=== PATIENT | male | born 1990 | race Caucasian/White ===

== ENCOUNTER 2017-02-18 10:36 | Inpatient (IN) | payer OTHER ==
[~2017-02-18] VITALS: Ht 177.8 cm; Wt 84.5 kg
[2017-02-18 10:30] VITALS: O2SAT 100
[2017-02-18] MEDS ORDERED: ceFAZolin 2 GM PREMIX 50 ML ONE (10:41)
[2017-02-18] MEDS ORDERED: DIPHTH/TETANUS/ACEL PERTUSSIS (BOOSTER) 0.5 ML VIAL/PFS IM ONE (10:41)
[2017-02-18 11:02] LABS: AUTOMATED NEUTROPHIL # 7.4 TH/MM3 (1.8-7.7); BASOPHIL % 0.3 % (0.0-2.0); EOSINOPHIL # 0.1 TH/MM3 (0-0.4); EOSINOPHIL % 1.1 % (0.0-4.0); HEMATOCRIT 46.5 % (39.0-51.0); HEMOGLOBIN 15.6 GM/DL (13.0-17.0); LYMPH % 25.3 % (9.0-44.0); LYMPHOCYTE # 2.8 TH/MM3 (1.0-4.8); MEAN CELL VOLUME 91.2 FL (80.0-100.0); MEAN CORPUSCULAR HEMOGLOBIN 30.7 PG (27.0-34.0); MEAN CORPUSCULAR HGB CONC 33.6 % (32.0-36.0); MEAN PLATELET VOLUME 8.2 FL (7.0-11.0); MONO % 5.6 % (0.0-8.0); MONOCYTE # 0.6 TH/MM3 (0-0.9); NEUT % 67.7 % (16.0-70.0); PLATELET COUNT 235 TH/MM3 (150-450); RED CELL DISTRIBUTION WIDTH 13.2 % (11.6-17.2); WHITE BLOOD COUNT 10.9 TH/MM3 (4.0-11.0)
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
[2017-02-18] MEDS ORDERED: IOHEXOL 350 MG/ML 10 ML VIAL (for RAD DIAG) IVCONTRAST ONE (11:07)
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
[2017-02-18 11:12] LABS: INTERNATIONAL NORMALIZED RATIO 1.1 RATIO; PROTHROMBIN TIME - PATIENT 10.7 SEC (9.8-11.6)
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
[2017-02-18] MEDS ORDERED: LIDOCAINE 1%/EPINEPHrine 1:100,000 SOLN 20 ML VIAL INFIL ONE (12:15)
[2017-02-18 12:19] VITALS: BP 143/73; PULSE 65; RESP 23; O2SAT 100
[2017-02-18] MEDS ORDERED: ONDANSETRON HCL 4 MG/2 ML VIAL IV PUSH PRN (12:45)
[2017-02-18] MEDS ORDERED: MAGNESIUM HYDROXIDE SUSP 30 ML CUP PO PRN (12:45)
[2017-02-18] MEDS ORDERED: MISCELLANEOUS NURSING INFORMATION XX SCH (12:45)
[2017-02-18] MEDS ORDERED: CHLORHEXIDINE GLUCONATE 2 % 1 PACK (2 CLOTHS) TOP PRN (12:45)
[2017-02-18] MEDS: LACTATED RINGER'S 1000 ML INJ 1,000 ML IV SCH ×2 (13:00→21:05)
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
[2017-02-18 13:23] VITALS: BP 120/61; PULSE 65; RESP 19; O2SAT 100
[2017-02-18] MEDS: MORPHINE SULFATE 2 MG/ML INJ IV PUSH PRN ×3 (14:11→21:05)
[2017-02-18] MEDS: ACETAMINOPHEN 1000 MG/100 ML 100 ML IV SCH ×2 (14:21→21:00)
--- NOTE | 2017-02-18 14:23 | PD ---
Physical Exam Date Seen by Provider: Feb 18, 2017 Time Seen by Provider: 14:21 Narrative I was asked by Dr. Castro to repair lacerations to the patient's right knee and face. Please see her documentation for full history and physical. Data Data Last Documented VS Vital Signs Date Time Temp Pulse Resp B/P (MAP) Pulse Ox O2 Delivery O2 Flow Rate FiO2 02/18/17 12:19 65 23 143/73 (96) 100 Room Air 02/18/17 10:30 21 Orders Orders Cefazolin 2 Gm Premix (Ancef 2 Gm Premix (02/18/17 10:41) Cdra-Ysx-Jwebhv (Booster) Inj (Boostrix (02/18/17 10:41) Fentanyl Inj (Fentanyl Inj) (02/18/17 10:45) I-Stat Profile (02/18/17 10:40) I-Stat Creatinine (02/18/17 10:40) Complete Blood Count With Diff (02/18/17 10:40) Prothrombin Time / Inr (Pt) (02/18/17 10:40) Act Partial Throm Time (Ptt) (02/18/17 10:40) Type And Screen (02/18/17 10:40) Chest, Single Ap (02/18/17 10:40) Pelvis, Ap Only (Routine) (02/18/17 10:40) Ct Brain W/O Iv Contrast(Rout) (02/18/17 10:40) Ct Cerv Spine W/O Contrast (02/18/17 10:40) Ct Abd/Pel W Iv Contrast(Rout) (02/18/17 10:40) Ct Facial Bones W/O Iv Cont (02/18/17 10:40) Iv Access Insert/Monitor (02/18/17 10:40) Ecg Monitoring (02/18/17 10:40) Oximetry (02/18/17 10:40) Oxygen Administration (02/18/17 10:40) Tibia/Fibula (Ap/Lat) (02/18/17 ) Knee, Ltd (1 Or 2vws) (02/18/17 ) Ankle, Limited (Ap&Lat) (02/18/17 ) Shoulder, One View (02/18/17 ) Ct Thorax/ Chest W Iv Contrast (02/18/17 ) Iohexol 350 Inj (Omnipaque 350 Inj) (02/18/17 11:07) Fentanyl Inj (Fentanyl Inj) (02/18/17 11:30) Lidocai-Epi 1%-1:100,000 Inj (Xylocaine- (02/18/17 12:15) Ice Cuff (02/18/17 ) Splint Post Long Leg Ad Alum (02/18/17 ) Admit Order (Ed Use Only) (02/18/17 12:18) Labs Laboratory Tests Test 02/18/17 10:40 White Blood Count 10.9 TH/MM3 Red Blood Count 5.10 MIL/MM3 Hemoglobin 15.6 GM/DL Bedside Hemoglobin 15.6 G/DL Hematocrit 46.5 % Bedside Hematocrit 46.0 % Mean Corpuscular Volume 91.2 FL Mean Corpuscular Hemoglobin 30.7 PG Mean Corpuscular Hemoglobin Concent 33.6 % Red Cell Distribution Width 13.2 % Platelet Count 235 TH/MM3 Mean Platelet Volume 8.2 FL Neutrophils (%) (Auto) 67.7 % Lymphocytes (%) (Auto) 25.3 % Monocytes (%) (Auto) 5.6 % Eosinophils (%) (Auto) 1.1 % Basophils (%) (Auto) 0.3 % Neutrophils # (Auto) 7.4 TH/MM3 Lymphocytes # (Auto) 2.8 TH/MM3 Monocytes # (Auto) 0.6 TH/MM3 Eosinophils # (Auto) 0.1 TH/MM3 Basophils # (Auto) 0.0 TH/MM3 CBC Comment DIFF FINAL Differential Comment Prothrombin Time 10.7 SEC Prothromb Time International Ratio 1.1 RATIO Activated Partial Thromboplast Time 23.1 SEC Bedside Sodium 139 MMOL/L Bedside Potassium 4.1 MMOL/L Bedside Chloride 101 MMOL/L Bedside Blood Urea Nitrogen 16 MG/DL Bedside Creatinine 1.0 MG/DL Bedside Glucose 122 MG/DL MDM Supervised Visit with LYRIC: No Narrative Course I was asked by Dr. Castro to repair lacerations of the patient's right knee and face. Laceration was easily repaired to the right knee without difficulty. However, facial lacerations were complicated extending up into the right nostril. I contacted the plastic surgeon, Dr. Rogel, who came to the emergency department and repaired lacerations to the patient's face. Procedures Procedure Narrative LACERATION LOCATION: Right knee LENGTH: 3 cm NUMBER OF STITCHES/JUAN F: 1 vertical mattress suture, 2 simple interrupted sutures REPAIR: The area of the laceration was prepped with Betadine and sterilely draped. The laceration was infiltrated with 1% lidocaine with epinephrine. The wound was copiously irrigated and explored without evidence of foreign body, tendon injury or neurovascular injury. The wound was closed using 3-0 Prolene. This was a single layer repair. A sterile dressing was applied. The patient was advised to keep the dressing clean and dry. Patient tolerated the procedure well. LACERATION LOCATION: Upper inner lip LENGTH: 4 cm NUMBER OF STITCHES/JUAN F: 5 simple interrupted sutures REPAIR: The area of the laceration was prepped with Betadine and sterilely draped. The laceration was infiltrated with 1% lidocaine with epinephrine. The wound was copiously irrigated and explored without evidence of foreign body, tendon injury or neurovascular injury. The wound was closed using 5-0 Vicryl. This was a single layer repair. A sterile dressing was applied. The patient was advised to keep the dressing clean and dry. Patient tolerated the procedure well. Scripts No Active Prescriptions or Reported [facility] Eloise Quintanilla Feb 18, 2017 14:23
[2017-02-18 15:38] VITALS: BP 145/61
[2017-02-18 16:00] VITALS: BP 142/88; PULSE 62; RESP 18; TEMP 99.2; O2SAT 99
[2017-02-18] MEDS ORDERED: GENTAMICIN SULFATE 80 MG/2 ML VIAL ONE (16:21)
--- NOTE | 2017-02-18 16:29 | RADRPT ---
EXAM DATE/TIME: 02/18/2017 11:04 [place] COMPARISON: No previous studies available for comparison. INDICATIONS : Low back pain for one day. RADIATION DOSE: ; Reconstructed from previous dataset, no dose MEDICAL HISTORY : None SURGICAL HISTORY : None. ENCOUNTER: Initial ACUITY: 1 day PAIN SCALE: 8/10 LOCATION: Bilateral lower back. TECHNIQUE: Volumetric scanning of the lumbar spine was performed. Multiplanar reconstructions in the sagittal, coronal and oblique axial planes were performed. Using automated exposure control and adjustment of the mA and/or kV according to patient size, radiation dose was kept as low as reasonably achievable t o obtain optimal diagnostic quality images. DICOM format image data is available electronically for review and comparison. FINDINGS: There is a mild compression fracture through the superior endplate of anteriorly. There is no retropu lsion. There is no canal stenosis. There is a remote fracture or accessory ossicle of the left L3 tra nsverse process. No other fractures are identified. CONCLUSION: 1. Mild superior endplate compression fracture of L4 anteriorly. No subluxation. No retropulsion. Fahad Roger MD on February 18, 2017 at 16:26 Board Certified Radiologist. This report was verified electronically.
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
[2017-02-18] MEDS ORDERED: MAGN30S PO (19:58)
[2017-02-18] MEDS ORDERED: DOCU1CAP39 PO (19:58)
[2017-02-18 20:00] VITALS: BP 151/92; PULSE 56; RESP 18; TEMP 96.6; O2SAT 100
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
[2017-02-18] MEDS ORDERED: LACTATED RINGER'S 1000 ML IV PRN (20:30)
[2017-02-18] MEDS ORDERED: POVIDONE IODINE 5% (ANTISEPSIS KIT) 4 APPLICATIONS EACH NARE PRN (20:30)
[2017-02-18] MEDS ORDERED: CHLORHEXIDINE GLUCONATE 2 % 1 PACK (2 CLOTHS) TOPICAL PRN (20:30)
[2017-02-18] MEDS ORDERED: SODIUM CHLORID 0.9% 500 ML IV PRN (20:30)
[2017-02-18] MEDS: DOCUSATE SODIUM 100 MG CAP PO SCH (21:00)
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
[2017-02-19] VITALS: BP 153/84; PULSE 81; RESP 20; TEMP 98.6; O2SAT 100
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
[2017-02-19] MEDS: MORPHINE SULFATE 2 MG/ML INJ IV PUSH PRN ×4 (01:05→11:37)
[2017-02-19] MEDS: ACETAMINOPHEN 1000 MG/100 ML 100 ML IV SCH ×2 (01:05→06:14)
[2017-02-19 04:00] VITALS: BP 145/84; PULSE 66; RESP 20; TEMP 99; O2SAT 98
[2017-02-19] MEDS ORDERED: CHLORHEXIDINE GLUCONATE 2 % 1 PACK (2 CLOTHS) TOP SCH (04:00)
[2017-02-19 04:17] LABS: AUTOMATED NEUTROPHIL # 6.7 TH/MM3 (1.8-7.7); BASOPHIL % 0.2 % (0.0-2.0); EOSINOPHIL % 0.3 % (0.0-4.0); HEMATOCRIT 41.8 % (39.0-51.0); HEMOGLOBIN 14.3 GM/DL (13.0-17.0); LYMPH % 14.2 % (9.0-44.0); LYMPHOCYTE # 1.2 TH/MM3 (1.0-4.8); MEAN CELL VOLUME 90.4 FL (80.0-100.0); MEAN CORPUSCULAR HEMOGLOBIN 30.8 PG (27.0-34.0); MEAN CORPUSCULAR HGB CONC 34.1 % (32.0-36.0); MONO % 7.5 % (0.0-8.0); MONOCYTE # 0.6 TH/MM3 (0-0.9); NEUT % 77.8 % (16.0-70.0); PLATELET COUNT 169 TH/MM3 (150-450); RED BLOOD COUNT 4.63 MIL/MM3 (4.50-5.90); RED CELL DISTRIBUTION WIDTH 13.3 % (11.6-17.2); WHITE BLOOD COUNT 8.6 TH/MM3 (4.0-11.0)
[2017-02-19 04:43] LABS: BICARBONATE 26.1 MEQ/L (21.0-32.0); CALCIUM 8.8 MG/DL (8.5-10.1); CREATININE 0.83 MG/DL (0.60-1.30)
[2017-02-19 08:00] VITALS: BP 149/85; PULSE 94; RESP 18; TEMP 97.8; O2SAT 97
[2017-02-19] MEDS: DOCUSATE SODIUM 100 MG CAP PO SCH (08:05)
[2017-02-19] MEDS: LACTATED RINGER'S 1000 ML INJ 1,000 ML IV SCH ×2 (08:06→20:31)
[2017-02-19] MEDS ORDERED: GENTAMICIN SULFATE 80 MG/2 ML VIAL ONE (09:55)
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
[2017-02-19 12:00] VITALS: BP 143/89; PULSE 78; RESP 18; TEMP 97.8; O2SAT 95
[2017-02-19] MEDS ORDERED: PROPOFOL 200 MG/20 ML AMP IV ONE (12:00)
[2017-02-19] MEDS ORDERED: GLYCOPYRROLATE 1 MG/5 ML SYRINGE IV PUSH ONE (12:00)
[2017-02-19] MEDS ORDERED: PHENYLEPH/NS 1000 MCG/10 ML SYR IV ONE (12:00)
[2017-02-19] MEDS ORDERED: STERILE WATER FOR INJECTION 20 ML VIAL IV ONE (12:00)
[2017-02-19] MEDS ORDERED: ceFAZolin INJ 1,000 MG VIAL IV ONE (12:00)
[2017-02-19] MEDS ORDERED: NEOSTIGMINE 5 MG/5 ML SYRINGE IV PUSH ONE (12:00)
[2017-02-19] MEDS ORDERED: LIDOCAINE HCL 1% PF 5 ML SYRINGE OTHER ONE (12:00)
[2017-02-19] MEDS ORDERED: DEXAMETHASONE SOD PHOS 4 MG/ML VIAL IV ONE (12:00)
[2017-02-19] MEDS ORDERED: ONDANSETRON HCL 4 MG/2 ML VIAL IV ONE (12:00)
[2017-02-19] MEDS ORDERED: LACTATED RINGER'S 1000 ML INJ 1,000 ML IV ONE (12:00)
[2017-02-19] MEDS ORDERED: ROCURONIUM INJ 50 MG/5 ML SYRINGE IV PUSH ONE (12:00)
[2017-02-19] MEDS ORDERED: ESMOLOL HCL 100 MG/10 ML VIAL IV ONE (12:00)
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
--- NOTE | 2017-02-19 15:08 | PD.ORT.PN ---
Subjective Subjective Remarks no CP/SOB Objective Vitals Vital Signs Date Time Temp Pulse Resp B/P (MAP) Pulse Ox O2 Delivery O2 Flow Rate FiO2 02/19/17 08:06 17 02/19/17 08:00 97.8 94 18 149/85 (106) 97 02/19/17 06:44 16 02/19/17 04:00 99.0 66 20 145/84 (104) 98 02/19/17 00:00 98.6 81 20 153/84 (107) 100 02/18/17 20:00 96.6 56 18 151/92 (111) 100 02/18/17 16:00 99.2 62 18 142/88 (106) 99 02/18/17 15:38 68 21 145/61 (89) 100 I/O 02/18/17 02/18/17 02/18/17 02/19/17 02/19/17 02/19/17 07:00 15:00 23:00 07:00 15:00 23:00 Intake Total 220 ml 1092 ml Output Total 750 ml 550 ml Balance -530 ml 542 ml Intake Oral 120 ml 200 ml IV Total 100 ml 892 ml Output Urine Total 750 ml 550 ml # Bowel Movements 0 0 Result Diagram: 02/19/1740202/19/17402 Objective Remarks LLE: splint in place, grossly nvi. foot and ankle swelling, TTP ankle and patella. good cap refill, soft compartments. Assessment & Plan Assessment and Plan 1- left patella fx 2- left pilon fx stable NWB xrays left knee CT left ankle ice, elevate lovenox OR when soft tissue amenable to ORIF, likely with Dr Oropeza next week Frank Watkins Jr., MD Feb 19, 2017 15:08
[2017-02-19] MEDS ORDERED: ceFAZolin 2 GM PREMIX 50 ML IV ONE (16:33)
[2017-02-19] MEDS ORDERED: MEPERIDINE HCL 50 MG/ML VIAL ONE (17:25)
--- NOTE | 2017-02-19 17:26 | PD.ORT.PN ---
Subjective Subjective Remarks Postoperative day 0 for external fixation of left ankle Objective Vitals Vital Signs Date Time Temp Pulse Resp B/P (MAP) Pulse Ox O2 Delivery O2 Flow Rate FiO2 02/19/17 15:30 82 18 138/98 (111) 99 02/19/17 08:06 17 02/19/17 08:00 97.8 94 18 149/85 (106) 97 02/19/17 06:44 16 02/19/17 04:00 99.0 66 20 145/84 (104) 98 02/19/17 00:00 98.6 81 20 153/84 (107) 100 02/18/17 20:00 96.6 56 18 151/92 (111) 100 I/O 02/18/17 02/18/17 02/18/17 02/19/17 02/19/17 02/19/17 07:00 15:00 23:00 07:00 15:00 23:00 Intake Total 220 ml 1092 ml Output Total 750 ml 550 ml Balance -530 ml 542 ml Intake Oral 120 ml 200 ml IV Total 100 ml 892 ml Output Urine Total 750 ml 550 ml # Bowel Movements 0 0 Result Diagram: 02/19/17 0403 02/19/17 0403 Objective Remarks LLE: splint in place, grossly nvi. foot and ankle swelling, TTP ankle and patella. good cap refill, soft compartments. Assessment & Plan Ortho Post Op Day #: 0 Problem List: Assessment and Plan Left ankle pilon fracture with fibula fracture. Left patella fracture, comminuted. SURGERY: Left ankle external fixator. PLAN: This patient will need delayed open treatment of fixation left pilon ankle fracture and left patella fracture. She Lovenox for chemical DVT prophylaxis, 40 mg daily. Ice and elevation of the left ankle. No dressing changes recommended. Splint for left knee. Dr. Green will be in town starting Wednesday. Coordination of care will be necessary with Dr. Green for transfer of orthopedics responsibility of left ankle and left knee when stable orthopedically Ibrahima Aguilar MD Feb 19, 2017 17:26
[2017-02-19] MEDS ORDERED: DO NOT ADM ANY ANTICOAGULANT DRUGS PRN (17:30)
--- NOTE | 2017-02-19 17:31 | RADRPT ---
EXAM DATE/TIME: 02/19/2017 16:31 [facility] COMPARISON: ANKLE LEFT LIMITED (AP&LAT), February 18, 2017, 10:37. INDICATIONS : External fixation of left ankle fracture MEDICAL HISTORY : None. SURGICAL HISTORY : None. ENCOUNTER: Initial ACUITY: 1 day PAIN SCORE: Non-responsive. LOCATION: Left ankle FINDINGS: 4 views of the left ankle demonstrate interval placement of external fixation screws. Hardware appear s intact and well-positioned. Redemonstration of severely comminuted distal tibial fracture. No new f ractures are identified. CONCLUSION: 1. Status post left ankle external fixation, as above. Scott Erazo MD on February 19, 2017 at 17:28 Board Certified Radiologist. This report was verified electronically.
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
--- NOTE | 2017-02-19 17:40 | RADRPT ---
EXAM DATE/TIME: 02/19/2017 16:31 [facility] COMPARISON: No previous studies available for comparison. INDICATIONS : Evaluation of left patella fracture MEDICAL HISTORY : None. SURGICAL HISTORY : None. ENCOUNTER: Initial ACUITY: 1 day PAIN SCORE: Non-responsive. LOCATION: Left patella FINDINGS: AP and crosstable lateral views of the left knee. There is a comminuted fracture of the patella remai kell osseous structures appear intact. CONCLUSION: 1. Comminuted left patellar fracture. Scott Erazo MD on February 19, 2017 at 17:37 Board Certified Radiologist. This report was verified electronically.
[2017-02-19] MEDS ORDERED: ONDANSETRON HCL 4 MG/2 ML VIAL IVP PRN (17:45)
[2017-02-19] MEDS ORDERED: MAGNESIUM HYDROXIDE SUSP 30 ML CUP PO PRN (17:45)
[2017-02-19] MEDS ORDERED: NALOXONE HCL 0.4 MG/ML AMP IV PUSH PRN (17:45)
[2017-02-19] MEDS ORDERED: diphenhydrAMINE HCL 25 MG CAP PO PRN (17:45)
[2017-02-19] MEDS ORDERED: Post-op Orders (for Pharmacy) XX ONE (17:45)
[2017-02-19] MEDS ORDERED: ACETAMINOPHEN/HYDROcodone 325 MG/5 MG TAB PO PRN (17:45)
[2017-02-19] MEDS ORDERED: *morphine SULFATE 8 MG/ML PERIprocedure ONLY ONE (17:55)
[2017-02-19 20:00] VITALS: BP 147/97; PULSE 99; RESP 18; TEMP 96.8; O2SAT 97
[2017-02-19] MEDS: MORPHINE SULFATE 30 MG/30 ML PCA IV SCH (20:00)
[2017-02-19] MEDS: DOCUSATE SODIUM 50 MG/SENNA 8.6 MG TAB PO SCH (20:31)
[2017-02-19] MEDS: CALCIUM/VITAMIN D 250 MG/125 U TAB PO SCH (20:31)
[2017-02-19 20:45] VITALS: O2SAT 97
[2017-02-19] MEDS: PCA - TOTAL MG MORPHINE DELIVERED PER SHIFT SCH (22:00)
[2017-02-20] VITALS: BP 142/92; PULSE 94; RESP 18; TEMP 96.2; O2SAT 96
[2017-02-20] MEDS: MORPHINE SULFATE 30 MG/30 ML PCA IV SCH ×3 (03:02→16:45)
[2017-02-20 03:59] VITALS: BP 149/76; PULSE 96; RESP 18; TEMP 98.8; O2SAT 98
[2017-02-20] MEDS: LACTATED RINGER'S 1000 ML INJ 1,000 ML IV SCH ×2 (05:34→09:56)
[2017-02-20] MEDS: ENOXAPARIN SODIUM 40 MG/0.4 ML SYRINGE SQ SCH (05:34)
[2017-02-20] MEDS: PCA - TOTAL MG MORPHINE DELIVERED PER SHIFT SCH ×3 (05:36→22:00)
[2017-02-20 07:48] VITALS: BP 152/83; PULSE 110; RESP 19; TEMP 97.8; O2SAT 97
[2017-02-20] MEDS: MAGNESIUM HYDROXIDE SUSP 30 ML CUP PO SCH ×2 (08:04→20:00)
[2017-02-20] MEDS: MULTIVITAMINS/MINERALS THERAPEUTIC TAB PO SCH (08:05)
[2017-02-20] MEDS: DOCUSATE SODIUM 50 MG/SENNA 8.6 MG TAB PO SCH ×2 (08:05→21:00)
[2017-02-20] MEDS: CALCIUM/VITAMIN D 250 MG/125 U TAB PO SCH ×3 (08:05→15:02)
--- NOTE | 2017-02-20 08:47 | PD.ORT.PN ---
Subjective Post Op Day #: 1 Subjective Remarks pain tolerable Objective Vitals Vital Signs Date Time Temp Pulse Resp B/P (MAP) Pulse Ox O2 Delivery O2 Flow Rate FiO2 02/20/17 07:48 97.8 110 19 152/83 (106) 97 02/20/17 05:36 18 02/20/17 03:59 98.8 96 18 149/76 (100) 98 02/20/17 03:10 17 02/20/17 03:02 18 02/20/17 00:00 96.2 94 18 142/92 (109) 96 02/19/17 22:00 18 02/19/17 20:45 97 Nasal Cannula 2.00 02/19/17 20:00 96.8 99 18 147/97 (114) 97 02/19/17 20:00 18 02/19/17 18:15 98.5 86 18 158/87 (110) 98 Nasal Cannula 2 02/19/17 18:00 86 18 160/90 (113) 98 Nasal Cannula 2 02/19/17 17:45 86 18 159/89 (112) 98 Nasal Cannula 2 02/19/17 17:30 81 18 160/89 (112) 98 Nasal Cannula 2 02/19/17 17:28 98.5 84 18 145/88 (107) 98 Nasal Cannula 2 02/19/17 15:30 82 18 138/98 (111) 99 02/19/17 12:00 97.8 78 18 143/89 (107) 95 I/O 02/19/17 02/19/17 02/19/17 02/20/17 02/20/17 02/20/17 07:00 15:00 23:00 07:00 15:00 23:00 Intake Total 1092 ml 1680 ml 1707 ml Output Total 550 ml 900 ml 610 ml 1250 ml Balance 542 ml -900 ml 1070 ml 457 ml Intake Oral 200 ml 480 ml 720 ml IV Total 892 ml 987 ml Other 1200 ml Output Urine Total 550 ml 900 ml 600 ml 1250 ml Estimated Blood Loss 10 ml # Bowel Movements 0 0 0 Result Diagram: 02/19/1740202/19/17402 Objective Remarks in bed, nad ice on face LLE - ex-fix intact, swelling, no erythema, nvi, sensation intact, cap refill, calf non-tender Assessment & Plan Ortho Post Op Day #: 1 Problem List: Assessment and Plan Left ankle pilon fracture with fibula fracture. Left patella fracture, comminuted. SURGERY: Left ankle external fixator. POD#1 PLAN: This patient will need delayed open treatment of fixation left pilon ankle fracture and left patella fracture. Lovenox for chemical DVT prophylaxis, 40 mg daily. Ice and elevation of the left ankle. No dressing changes recommended. Splint for left knee. Dr. Green will be in town starting Wednesday. Coordination of care will be necessary with Dr. Green for transfer of orthopedics responsibility of left ankle and left knee when stable orthopedically Fritz Peterson Feb 20, 2017 08:47
[2017-02-20 11:00] VITALS: BP 150/89; PULSE 93; RESP 18; TEMP 97; O2SAT 94
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
[2017-02-20 15:03] VITALS: BP 158/99; PULSE 101; RESP 19; TEMP 97.7; O2SAT 95
[2017-02-20] MEDS: ACETAMINOPHEN/HYDROcodone 325 MG/5 MG TAB PO PRN (15:06)
[2017-02-20] MEDS ORDERED: PADIMATE (CHAPSTICK) 4.5 GM TUBE TOPICAL PRN (17:15)
[2017-02-20 19:14] VITALS: BP 149/80; PULSE 93; RESP 18; TEMP 98.7; O2SAT 96
[2017-02-21] VITALS (7 sets, daily range): BP systolic 153–163; BP diastolic 69–92; PULSE 81–103; RESP 18–20; TEMP 96.8–99.6; O2SAT 96–97
[2017-02-21] MEDS: ENOXAPARIN SODIUM 40 MG/0.4 ML SYRINGE SQ SCH (05:10)
[2017-02-21] MEDS: MORPHINE SULFATE 30 MG/30 ML PCA IV SCH ×4 (05:14→23:24)
[2017-02-21] MEDS: PCA - TOTAL MG MORPHINE DELIVERED PER SHIFT SCH ×3 (05:15→21:22)
[2017-02-21] MEDS: LACTATED RINGER'S 1000 ML INJ 1,000 ML IV SCH ×2 (05:16→08:23)
--- NOTE | 2017-02-21 07:20 | PD.ORT.PN ---
Subjective Subjective Remarks Patient resting currently this morning. He states he does still have left ankle and knee pain. No acute events Objective Vitals Vital Signs Date Time Temp Pulse Resp B/P (MAP) Pulse Ox O2 Delivery O2 Flow Rate FiO2 02/21/17 05:15 18 02/21/17 05:14 18 02/21/17 03:47 98.9 99 18 154/92 (112) 96 02/21/17 00:07 99.2 96 18 163/88 (113) 97 02/20/17 22:00 18 02/20/17 19:14 98.7 93 18 149/80 (103) 96 02/20/17 16:45 18 02/20/17 15:03 97.7 101 19 158/99 (118) 95 02/20/17 11:00 97.0 93 18 150/89 (109) 94 02/20/17 09:11 16 02/20/17 09:11 16 02/20/17 07:48 97.8 110 19 152/83 (106) 97 I/O 02/20/17 02/20/17 02/20/17 02/21/17 02/21/17 02/21/17 07:00 15:00 23:00 07:00 15:00 23:00 Intake Total 1707 ml 800 ml 580 ml 480 ml Output Total 1250 ml 700 ml 1250 ml 1850 ml Balance 457 ml 100 ml -670 ml -1370 ml Intake Oral 720 ml 700 ml 480 ml 480 ml IV Total 987 ml 100 ml 100 ml Output Urine Total 1250 ml 700 ml 1250 ml 1850 ml # Bowel Movements 0 0 0 0 Result Diagram: 02/19/1740202/19/17402 Objective Remarks in bed, nad Ice on left ankle LLE - ex-fix intact, swelling, no erythema, nvi, sensation intact, cap refill, calf non-tender. Tenderness about the knee. Assessment & Plan Assessment and Plan Left ankle pilon fracture with fibula fracture. Left patella fracture, comminuted. SURGERY: Left ankle external fixator. POD#2 PLAN: This patient will need delayed open treatment of fixation left pilon ankle fracture and left patella fracture. Lovenox for chemical DVT prophylaxis, 40 mg daily. Ice and elevation of the left ankle and knee. No dressing changes recommended. Splint for left knee. Dr. Green will be in town starting Wednesday. Coordination of care will be necessary with Dr. Green for transfer of orthopedics responsibility of left ankle and left knee when stable orthopedically Lillie Bowers MD Feb 21, 2017 07:20
[2017-02-21 08:19] LABS: AUTOMATED NEUTROPHIL # 4.4 TH/MM3 (1.8-7.7); BASOPHIL % 0.3 % (0.0-2.0); EOSINOPHIL # 0.1 TH/MM3 (0-0.4); EOSINOPHIL % 1.9 % (0.0-4.0); HEMATOCRIT 29.2 % (39.0-51.0); HEMOGLOBIN 10.2 GM/DL (13.0-17.0); LYMPH % 19.3 % (9.0-44.0); LYMPHOCYTE # 1.2 TH/MM3 (1.0-4.8); MEAN CELL VOLUME 89.1 FL (80.0-100.0); MEAN CORPUSCULAR HEMOGLOBIN 31.2 PG (27.0-34.0); MONOCYTE # 0.6 TH/MM3 (0-0.9); NEUT % 69.5 % (16.0-70.0); PLATELET COUNT 166 TH/MM3 (150-450); RED BLOOD COUNT 3.28 MIL/MM3 (4.50-5.90); RED CELL DISTRIBUTION WIDTH 12.5 % (11.6-17.2); WHITE BLOOD COUNT 6.3 TH/MM3 (4.0-11.0)
[2017-02-21] MEDS: MULTIVITAMINS/MINERALS THERAPEUTIC TAB PO SCH (08:23)
[2017-02-21] MEDS: MAGNESIUM HYDROXIDE SUSP 30 ML CUP PO SCH ×2 (08:23→21:17)
[2017-02-21] MEDS: DOCUSATE SODIUM 50 MG/SENNA 8.6 MG TAB PO SCH ×2 (08:23→21:17)
[2017-02-21] MEDS: CALCIUM/VITAMIN D 250 MG/125 U TAB PO SCH ×3 (08:23→17:16)
[2017-02-21 08:46] LABS: BICARBONATE 29.2 MEQ/L (21.0-32.0); CALCIUM 8.7 MG/DL (8.5-10.1); CREATININE 0.67 MG/DL (0.60-1.30)
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
[2017-02-21] MEDS: ACETAMINOPHEN/HYDROcodone 325 MG/5 MG TAB PO PRN (22:45)
[2017-02-22] VITALS (9 sets, daily range): BP systolic 134–157; BP diastolic 79–90; PULSE 89–115; RESP 15–18; TEMP 99.1–100.8; O2SAT 96–100
[2017-02-22] MEDS: PCA - TOTAL MG MORPHINE DELIVERED PER SHIFT SCH ×3 (06:00→22:00)
[2017-02-22] MEDS: ENOXAPARIN SODIUM 40 MG/0.4 ML SYRINGE SQ SCH ×2 (06:24→19:17)
[2017-02-22] MEDS: DOCUSATE SODIUM 50 MG/SENNA 8.6 MG TAB PO SCH ×2 (08:47→19:24)
[2017-02-22] MEDS: LACTULOSE SYRUP 20 GM/30 ML CUP PO SCH (08:48)
[2017-02-22] MEDS: MULTIVITAMINS/MINERALS THERAPEUTIC TAB PO SCH (08:48)
[2017-02-22] MEDS: MAGNESIUM HYDROXIDE SUSP 30 ML CUP PO SCH ×2 (08:48→19:24)
[2017-02-22] MEDS: LACTATED RINGER'S 1000 ML INJ 1,000 ML IV SCH ×3 (08:48→19:17)
[2017-02-22] MEDS: CALCIUM/VITAMIN D 250 MG/125 U TAB PO SCH ×3 (08:48→16:59)
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
--- NOTE | 2017-02-22 14:19 | PD.ORT.PN ---
Subjective Post Op Day #: 3 Subjective Remarks Postop day 3 left ankle ex-fix Patient is sitting upright in chair, With leg elevated. He states his pain is well controlled. He states most of his pain is localized around his knee. No other complaints at this time. Objective Vitals Vital Signs Date Time Temp Pulse Resp B/P (MAP) Pulse Ox O2 Delivery O2 Flow Rate FiO2 02/22/17 12:00 99.8 115 18 139/90 (106) 97 02/22/17 10:00 97 02/22/17 08:00 99.6 103 18 138/81 (100) 97 02/22/17 06:00 18 02/22/17 04:21 99.1 101 18 151/90 (110) 98 02/22/17 00:00 99.9 95 18 157/88 (111) 96 02/21/17 23:24 18 02/21/17 23:24 18 02/21/17 21:22 18 02/21/17 20:00 99.6 92 20 153/84 (107) 96 02/21/17 17:58 18 02/21/17 17:37 97 21 02/21/17 15:35 96.8 88 18 162/69 (100) 96 I/O 02/21/17 02/21/17 02/21/17 02/22/17 02/22/17 02/22/17 07:00 15:00 23:00 07:00 15:00 23:00 Intake Total 668 ml 1902 ml 500 ml 580 ml Output Total 1850 ml 620 ml 740 ml Balance -1182 ml 1902 ml -120 ml -160 ml Intake Oral 480 ml 660 ml 500 ml 580 ml IV Total 188 ml 1242 ml Output Urine Total 1850 ml 620 ml 740 ml # Voids 3 # Bowel Movements 0 0 0 0 2 Result Diagram: 02/21/17 0742 02/21/17 0747 Imaging Last Impressions Knee X-Ray 02/19/17 0000 Signed Impressions: Service Date/Time: Sunday, February 19, 2017 16:31 - CONCLUSION: 1. Comminuted left patellar fracture. Scott Erazo MD Ankle X-Ray 02/19/17 0000 Signed Impressions: Service Date/Time: Sunday, February 19, 2017 16:31 - CONCLUSION: 1. Status post left ankle external fixation, as above. Scott Erazo MD Pelvis X-Ray 02/18/17 1040 Signed Impressions: Service Date/Time: January 10:37 - CONCLUSION: The bony structures are grossly intact. A CT scan of the abdomen and pelvis were performed for further evaluation. Lenin Franco MD Maxillofacial CT 02/18/17 1040 Signed Impressions: Service Date/Time: January 10:57 - CONCLUSION: 1. There are bilateral nasal bone fractures which are mildly displaced. There is surrounding soft tissue swelling. 2. The rest of the bony structures of the facial bones are grossly intact. Lenin Franco MD Head CT 02/18/17 1040 Signed Impressions: Service Date/Time: January 10:57 - CONCLUSION: 1. Unremarkable CT scan of the brain. 2. Nondisplaced fractures involving the nasal bones. Lenin Franco MD Chest X-Ray 02/18/170 Signed Impressions: Service Date/Time: January 10:37 - CONCLUSION: No acute intrathoracic disease. Lenin Franco MD Cervical Spine CT 02/18/17 1040 Signed Impressions: Service Date/Time: January 10:57 - CONCLUSION: Normal examination for a patient of this age. Lenin Franco MD Abdomen/Pelvis CT 02/18/17 1040 Signed Impressions: Service Date/Time: January 11:04 - CONCLUSION: 1. There appears to be a trace of fluid around the liver. 2. There is a mild compression fracture injury involving the anterior superior endplate of L4. The rest of the bony structures appear to be grossly intact. Lenin Franco MD Tibia/Fibula X-Ray 02/18/17 0000 Signed Impressions: Service Date/Time: January 10:37 - CONCLUSION: 1. There is a fracture through the body of the patella. 2. There are comminuted fractures involving the distal tibia and fibula. Lenin Franco MD Shoulder X-Ray 02/18/17 0000 Signed Impressions: Service Date/Time: January 10:37 - CONCLUSION: Limited study. The bony structures appear to be grossly intact. No definite joint dislocation. A Lenin Franco MD Lumbar Spine CT 02/18/17 0000 Signed Impressions: Service Date/Time: January 11:04 - CONCLUSION: 1. Mild superior endplate compression fracture of L4 anteriorly. No subluxation. No retropulsion. Fahad Roger MD Lower Extremity CT 02/18/17 0000 Signed Impressions: Service Date/Time: Sunday, February 19, 2017 00:12 - CONCLUSION: 1. Comminuted tibial plafond fracture with prominent involvement of the tibiotalar joint articular surface and 1 cm depressed bone fragment. Widening of the ankle mortise. 2. horizontal distal fibular fracture. Frankie Jackson MD Chest CT 02/18/17 0000 Signed Impressions: Service Date/Time: January 11:04 - CONCLUSION: No acute intrathoracic injury Ad Langley MD Procedures Left ankle external fixator, 02/19/2017, Dr. Ibrahima Aguilar Objective Remarks in bed, nad Ice on left ankle LLE - ex-fix intact, swelling, no erythema, nvi, sensation intact, cap refill, calf non-tender. Tenderness about the knee. Assessment & Plan Ortho Post Op Day #: 3 Problem List: (1) Patella fracture ICD Codes: S82.009A - Unspecified fracture of unspecified patella, initial encounter for closed fracture Status: Acute Qualifiers: Qualified Codes: S82.002A - Unspecified fracture of left patella, initial encounter for closed fracture (2) Trimalleolar fracture ICD Codes: S82.853A - Displaced trimalleolar fracture of unspecified lower leg , initial encounter for closed fracture Status: Acute Qualifiers: Qualified Codes: S82.852A - Displaced trimalleolar fracture of left lower leg, initial encounter for closed fracture Assessment and Plan Left ankle pilon fracture with fibula fracture. Left patella fracture, comminuted. SURGERY: Left ankle external fixator. POD#3 PLAN: This patient will need delayed open treatment of fixation left pilon ankle fracture and left patella fracture. Lovenox for chemical DVT prophylaxis, 40 mg daily. Ice and elevation of the left ankle and knee. No dressing changes recommended. Splint for left knee. Dr. Oropeza will be in town starting Wednesday. Coordination of care will be necessary with Dr. Oropeza for transfer of orthopedics responsibility of left ankle and left knee when stable orthopedically Renea Thompson Feb 22, 2017 14:19
[2017-02-22] MEDS: GABAPENTIN 300 MG CAP PO SCH ×2 (14:28→16:59)
[2017-02-22] MEDS: MORPHINE SULFATE 30 MG/30 ML PCA IV SCH (15:05)
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
[2017-02-22] MEDS: BACITRACIN/POLYMYXIN B 15 GM TUBE TOPICAL SCH ×2 (16:25→19:24)
[2017-02-22] MEDS: ACETAMINOPHEN/HYDROcodone 325 MG/5 MG TAB PO PRN (19:23)
[2017-02-22] MEDS ORDERED: POVIDONE IODINE 5% (ANTISEPSIS KIT) 4 APPLICATIONS EACH NARE PRN (23:30)
[2017-02-22] MEDS ORDERED: LACTATED RINGER'S 1000 ML IV PRN (23:30)
[2017-02-22] MEDS ORDERED: CHLORHEXIDINE GLUCONATE 2 % 1 PACK (2 CLOTHS) TOPICAL PRN (23:30)
[2017-02-23] VITALS (9 sets, daily range): BP systolic 126–143; BP diastolic 77–94; PULSE 70–99; RESP 15–19; TEMP 97.9–99.7; O2SAT 96–99
[2017-02-23] MEDS: MORPHINE SULFATE 30 MG/30 ML PCA IV SCH (05:07)
[2017-02-23] MEDS: PCA - TOTAL MG MORPHINE DELIVERED PER SHIFT SCH (06:00)
[2017-02-23 06:19] LABS: AUTOMATED NEUTROPHIL # 3.7 TH/MM3 (1.8-7.7); BASOPHIL % 0.4 % (0.0-2.0); EOSINOPHIL # 0.1 TH/MM3 (0-0.4); EOSINOPHIL % 1.4 % (0.0-4.0); HEMATOCRIT 27.5 % (39.0-51.0); LYMPH % 19.8 % (9.0-44.0); LYMPHOCYTE # 1.1 TH/MM3 (1.0-4.8); MEAN CELL VOLUME 87.8 FL (80.0-100.0); MEAN CORPUSCULAR HEMOGLOBIN 31.9 PG (27.0-34.0); MEAN PLATELET VOLUME 7.5 FL (7.0-11.0); MONO % 13.4 % (0.0-8.0); MONOCYTE # 0.8 TH/MM3 (0-0.9); PLATELET COUNT 274 TH/MM3 (150-450); RED BLOOD COUNT 3.13 MIL/MM3 (4.50-5.90); RED CELL DISTRIBUTION WIDTH 12.7 % (11.6-17.2); WHITE BLOOD COUNT 5.7 TH/MM3 (4.0-11.0)
[2017-02-23 06:24] LABS: MEAN CORPUSCULAR HGB CONC 36.3 % (32.0-36.0)
[2017-02-23 06:42] LABS: ALBUMIN 2.9 GM/DL (3.4-5.0); AST (GOT) 18 U/L (15-37); BICARBONATE 30.8 MEQ/L (21.0-32.0); BLOOD UREA NITROGEN 13 MG/DL (7-18); CALCIUM 8.4 MG/DL (8.5-10.1); CHLORIDE 96 MEQ/L (98-107); CREATININE 0.73 MG/DL (0.60-1.30); GLOMERULAR FILTRATION RATE 130 ML/MIN (>89); GLUCOSE,RANDOM 107 MG/DL (74-106); SODIUM (NA) 132 MEQ/L (136-145)
[2017-02-23 06:43] LABS: ALT (GPT) 18 U/L (12-78)
[2017-02-23 06:45] LABS: ALKALINE PHOSPHATASE 65 U/L (45-117); TOTAL BILIRUBIN ADULT 0.6 MG/DL (0.2-1.0)
[2017-02-23] MEDS: KETOROLAC TROMETHAMINE 30 MG/ML (IVP) VIAL IV PUSH SCH ×3 (06:45→20:11)
--- NOTE | 2017-02-23 06:48 | PD.ORT.PN ---
Subjective Subjective Remarks Pain controlled her resting comfortably status post external fixation of left ankle Objective Vitals Vital Signs Date Time Temp Pulse Resp B/P (MAP) Pulse Ox O2 Delivery O2 Flow Rate FiO2 02/23/17 06:00 16 02/23/17 05:35 99.2 86 15 142/94 (110) 99 02/23/17 05:07 16 02/22/17 23:27 100.1 98 16 148/89 (108) 98 02/22/17 22:00 16 02/22/17 20:05 100 02/22/17 20:00 100.8 106 15 134/81 (98) 97 02/22/17 16:00 99.4 89 18 140/79 (99) 98 02/22/17 15:05 16 02/22/17 14:00 16 02/22/17 12:00 99.8 115 18 139/90 (106) 97 02/22/17 10:00 97 02/22/17 08:00 99.6 103 18 138/81 (100) 97 I/O 02/22/17 02/22/17 02/22/17 02/23/17 02/23/17 02/23/17 07:00 15:00 23:00 07:00 15:00 23:00 Intake Total 580 ml 480 ml 1000 ml 1150 ml Output Total 740 ml 2400 ml Balance -160 ml 480 ml 1000 ml -1250 ml Intake Oral 580 ml 480 ml 800 ml IV Total 1000 ml 350 ml Output Urine Total 740 ml 2400 ml # Voids 5 1 # Bowel Movements 0 4 1 Result Diagram: 02/23/17 0537 02/23/17 0537 Imaging Last Impressions Knee X-Ray 02/19/17 0000 Signed Impressions: Service Date/Time: Sunday, February 19, 2017 16:31 - CONCLUSION: 1. Comminuted left patellar fracture. Scott Erazo MD Ankle X-Ray 02/19/17 0000 Signed Impressions: Service Date/Time: Sunday, February 19, 2017 16:31 - CONCLUSION: 1. Status post left ankle external fixation, as above. Scott Erazo MD Pelvis X-Ray 02/18/17 1040 Signed Impressions: Service Date/Time: January 10:37 - CONCLUSION: The bony structures are grossly intact. A CT scan of the abdomen and pelvis were performed for further evaluation. Lenin Franco MD Maxillofacial CT 02/18/17 1040 Signed Impressions: Service Date/Time: January 10:57 - CONCLUSION: 1. There are bilateral nasal bone fractures which are mildly displaced. There is surrounding soft tissue swelling. 2. The rest of the bony structures of the facial bones are grossly intact. Lenin Franco MD Head CT 02/18/170 Signed Impressions: Service Date/Time: January 10:57 - CONCLUSION: 1. Unremarkable CT scan of the brain. 2. Nondisplaced fractures involving the nasal bones. Lenin Franco MD Chest X-Ray 02/18/171039 Signed Impressions: Service Date/Time: January 10:37 - CONCLUSION: No acute intrathoracic disease. Lenin Franco MD Cervical Spine CT 02/18/171039 Signed Impressions: Service Date/Time: January 10:57 - CONCLUSION: Normal examination for a patient of this age. Lenin Franco MD Abdomen/Pelvis CT 02/18/170 Signed Impressions: Service Date/Time: January 11:04 - CONCLUSION: 1. There appears to be a trace of fluid around the liver. 2. There is a mild compression fracture injury involving the anterior superior endplate of L4. The rest of the bony structures appear to be grossly intact. Lenin Franco MD Tibia/Fibula X-Ray 02/18/17 0000 Signed Impressions: Service Date/Time: January 10:37 - CONCLUSION: 1. There is a fracture through the body of the patella. 2. There are comminuted fractures involving the distal tibia and fibula. Lenin Franco MD Shoulder X-Ray 02/18/17 0000 Signed Impressions: Service Date/Time: January 10:37 - CONCLUSION: Limited study. The bony structures appear to be grossly intact. No definite joint dislocation. A Lenin Franco MD Lumbar Spine CT 02/18/17 0000 Signed Impressions: Service Date/Time: January 11:04 - CONCLUSION: 1. Mild superior endplate compression fracture of L4 anteriorly. No subluxation. No retropulsion. Fahad Roger MD Lower Extremity CT 02/18/17 0000 Signed Impressions: Service Date/Time: Sunday, February 19, 2017 00:12 - CONCLUSION: 1. Comminuted tibial plafond fracture with prominent involvement of the tibiotalar joint articular surface and 1 cm depressed bone fragment. Widening of the ankle mortise. 2. horizontal distal fibular fracture. Frankie Jackson MD Chest CT 02/18/17 0000 Signed Impressions: Service Date/Time: January 11:04 - CONCLUSION: No acute intrathoracic injury Ad Langley MD Procedures Left ankle external fixator, 02/19/2017, Dr. Ibrahima Aguilar Objective Remarks in bed, nad Ice on left ankle LLE - ex-fix intact, swelling +2, no erythema, nvi, sensation intact, cap refill , calf non-tender. Posterior long-leg splint. Tenderness about the knee. Assessment & Plan Problem List: (1) Patella fracture ICD Codes: S82.009A - Unspecified fracture of unspecified patella, initial encounter for closed fracture Status: Acute Qualifiers: Qualified Codes: S82.002A - Unspecified fracture of left patella, initial encounter for closed fracture (2) Trimalleolar fracture ICD Codes: S82.853A - Displaced trimalleolar fracture of unspecified lower leg , initial encounter for closed fracture Status: Acute Qualifiers: Qualified Codes: S82.852A - Displaced trimalleolar fracture of left lower leg, initial encounter for closed fracture Assessment and Plan Left ankle pilon fracture with fibula fracture. Left patella fracture, comminuted. SURGERY: Left ankle external fixator. POD#4 PLAN: This patient will need delayed open treatment of fixation left pilon ankle fracture and left patella fracture. Nonweightbearing left lower extremity Lovenox for chemical DVT prophylaxis, 40 mg daily. Ice and elevation of the left ankle and knee. No dressing changes recommended. Splint for left knee. Resume diet Toradol 40 mg every 8 hours 3 doses Swelling is too great for surgery at this time. We will plan on surgery Wednesday or Thursday if swelling has improved Javier Pisano Jr. Feb 23, 2017 06:48
[2017-02-23] MEDS: GABAPENTIN 300 MG CAP PO SCH ×3 (07:55→17:14)
[2017-02-23] MEDS: CALCIUM/VITAMIN D 250 MG/125 U TAB PO SCH ×3 (07:55→17:14)
[2017-02-23] MEDS: MULTIVITAMINS/MINERALS THERAPEUTIC TAB PO SCH (07:57)
[2017-02-23] MEDS: LACTULOSE SYRUP 20 GM/30 ML CUP PO SCH (07:58)
[2017-02-23] MEDS: DOCUSATE SODIUM 50 MG/SENNA 8.6 MG TAB PO SCH ×2 (07:58→20:11)
[2017-02-23] MEDS: MAGNESIUM HYDROXIDE SUSP 30 ML CUP PO SCH ×2 (07:59→20:11)
[2017-02-23] MEDS: METHOCARBAMOL 500 MG TAB PO SCH ×2 (12:43→20:11)
[2017-02-23] MEDS: fentaNYL 50 MCG/HR PATCH T-DERMAL SCH (12:44)
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
[2017-02-23] MEDS: ENOXAPARIN SODIUM 40 MG/0.4 ML SYRINGE SQ SCH (20:12)
[2017-02-23] MEDS: BACITRACIN/POLYMYXIN B 15 GM TUBE TOPICAL SCH ×2 (20:12→20:13)
[2017-02-24] VITALS (7 sets, daily range): BP systolic 133–147; BP diastolic 75–87; PULSE 82–100; RESP 16–22; TEMP 97.7–99.9; O2SAT 94–98
[2017-02-24] MEDS: METHOCARBAMOL 500 MG TAB PO SCH ×3 (05:34→20:45)
[2017-02-24] MEDS: MAGNESIUM HYDROXIDE SUSP 30 ML CUP PO SCH ×2 (08:00→20:45)
[2017-02-24] MEDS: GABAPENTIN 300 MG CAP PO SCH ×3 (08:29→18:48)
[2017-02-24] MEDS: MULTIVITAMINS/MINERALS THERAPEUTIC TAB PO SCH (08:30)
[2017-02-24] MEDS: CALCIUM/VITAMIN D 250 MG/125 U TAB PO SCH ×3 (08:30→18:49)
[2017-02-24] MEDS: LACTULOSE SYRUP 20 GM/30 ML CUP PO SCH (08:30)
[2017-02-24] MEDS: DOCUSATE SODIUM 50 MG/SENNA 8.6 MG TAB PO SCH ×2 (08:30→20:45)
[2017-02-24] MEDS: BACITRACIN/POLYMYXIN B 15 GM TUBE TOPICAL SCH ×2 (08:31→20:51)
[2017-02-24] MEDS ORDERED: SODIUM CHLORIDE 0.9% 20 ML VIAL IV ONE (12:00)
[2017-02-24] MEDS ORDERED: PROPOFOL 200 MG/20 ML AMP IV ONE (12:00)
[2017-02-24] MEDS ORDERED: LIDOCAINE HCL 1% PF 5 ML SYRINGE OTHER ONE (12:00)
[2017-02-24] MEDS ORDERED: ONDANSETRON HCL 4 MG/2 ML VIAL IV PUSH ONE (12:00)
[2017-02-24] MEDS ORDERED: DEXAMETHASONE SOD PHOS 4 MG/ML VIAL IV ONE (12:00)
[2017-02-24] MEDS ORDERED: BUPIVACAINE/EPINEPHRINE 0.25% PF 30 ML VIAL ONE (12:33)
[2017-02-24] MEDS ORDERED: LIDOCAINE 1%/EPINEPHrine 1:100,000 SOLN 50 ML VIAL ONE (12:36)
[2017-02-24] MEDS: MORPHINE SULFATE 2 MG/ML INJ IV PUSH PRN (12:50)
[2017-02-24] MEDS ORDERED: ceFAZolin 2 GM PREMIX 50 ML ONE (12:57)
[2017-02-24] MEDS ORDERED: OXYMETAZOLINE HCL 0.05% 15 ML NASAL SPRAY ONE (12:58)
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
[2017-02-24] MEDS ORDERED: DO NOT ADM ANY ANTICOAGULANT DRUGS PRN (14:02)
[2017-02-24] MEDS ORDERED: *morphine SULFATE 10 MG/ML PERIprocedure ONLY ONE (14:44)
[2017-02-25] VITALS: BP 121/79; PULSE 89; RESP 20; TEMP 96.8; O2SAT 97
[2017-02-25 04:00] VITALS: BP 127/71; PULSE 75; RESP 20; TEMP 96.7; O2SAT 97
[2017-02-25 04:55] LABS: AUTOMATED NEUTROPHIL # 5.7 TH/MM3 (1.8-7.7); BASOPHIL % 0.3 % (0.0-2.0); EOSINOPHIL % 0.1 % (0.0-4.0); HEMATOCRIT 24.5 % (39.0-51.0); HEMOGLOBIN 8.8 GM/DL (13.0-17.0); LYMPH % 12.4 % (9.0-44.0); LYMPHOCYTE # 0.9 TH/MM3 (1.0-4.8); MEAN CELL VOLUME 86.5 FL (80.0-100.0); MEAN CORPUSCULAR HGB CONC 35.9 % (32.0-36.0); MEAN PLATELET VOLUME 7.1 FL (7.0-11.0); MONO % 12.4 % (0.0-8.0); MONOCYTE # 0.9 TH/MM3 (0-0.9); NEUT % 74.8 % (16.0-70.0); PLATELET COUNT 373 TH/MM3 (150-450); RED BLOOD COUNT 2.84 MIL/MM3 (4.50-5.90); RED CELL DISTRIBUTION WIDTH 12.7 % (11.6-17.2); WHITE BLOOD COUNT 7.6 TH/MM3 (4.0-11.0)
[2017-02-25 05:11] LABS: BICARBONATE 32.9 MEQ/L (21.0-32.0); CALCIUM 8.5 MG/DL (8.5-10.1); CREATININE 0.72 MG/DL (0.60-1.30)
[2017-02-25] MEDS: METHOCARBAMOL 500 MG TAB PO SCH ×3 (05:43→20:42)
[2017-02-25] MEDS: ENOXAPARIN SODIUM 40 MG/0.4 ML SYRINGE SQ SCH (05:43)
--- NOTE | 2017-02-25 06:57 | PD.ORT.PN ---
Subjective Subjective Remarks s/p left distal tibia exfix s/p left patella fx doing well. pain controlled. no changes Objective Vitals Vital Signs Date Time Temp Pulse Resp B/P (MAP) Pulse Ox O2 Delivery O2 Flow Rate FiO2 02/25/17 04:00 96.7 75 20 127/71 (89) 97 02/25/17 00:00 96.8 89 20 121/79 (93) 97 02/24/17 21:18 97 02/24/17 20:00 97.7 100 22 141/75 (97) 96 02/24/17 15:25 99.8 96 18 140/81 (100) 97 02/24/17 14:56 99.6 96 21 136/64 (88) 100 Room Air 02/24/17 14:45 90 22 154/69 (97) 96 Room Air 02/24/17 14:30 88 20 132/68 (89) 96 Room Air 02/24/17 14:15 88 25 129/71 (90) 96 Room Air 02/24/17 14:04 99.4 99 30 139/78 (98) 100 Simple Mask 6 02/24/17 12:00 99.5 92 17 133/80 (97) 97 02/24/17 07:47 99.4 88 17 147/82 (103) 97 I/O 02/24/17 02/24/17 02/24/17 02/25/17 02/25/17 02/25/17 07:00 15:00 23:00 07:00 15:00 23:00 Intake Total 1000 ml 720 ml Output Total 300 ml 405 ml 1500 ml Balance -300 ml 595 ml -780 ml Intake Oral 0 ml 720 ml IV Total 1000 ml Output Urine Total 300 ml 400 ml 1500 ml Estimated Blood Loss 5 ml Result Diagram: 02/25/17 0357 02/25/17 0357 Imaging Last Impressions Knee X-Ray 02/19/17 0000 Signed Impressions: Service Date/Time: Sunday, February 19, 2017 16:31 - CONCLUSION: 1. Comminuted left patellar fracture. Scott Erazo MD Ankle X-Ray 02/19/17 0000 Signed Impressions: Service Date/Time: Sunday, February 19, 2017 16:31 - CONCLUSION: 1. Status post left ankle external fixation, as above. Scott Erazo MD Pelvis X-Ray 02/18/17 1040 Signed Impressions: Service Date/Time: January 10:37 - CONCLUSION: The bony structures are grossly intact. A CT scan of the abdomen and pelvis were performed for further evaluation. Lenin Franco MD Maxillofacial CT 02/18/17 1040 Signed Impressions: Service Date/Time: January 10:57 - CONCLUSION: 1. There are bilateral nasal bone fractures which are mildly displaced. There is surrounding soft tissue swelling. 2. The rest of the bony structures of the facial bones are grossly intact. Lenin Franco MD Head CT 02/18/17 1040 Signed Impressions: Service Date/Time: January 10:57 - CONCLUSION: 1. Unremarkable CT scan of the brain. 2. Nondisplaced fractures involving the nasal bones. Lenin Franco MD Chest X-Ray 02/18/17 1040 Signed Impressions: Service Date/Time: January 10:37 - CONCLUSION: No acute intrathoracic disease. Lenin Franco MD Cervical Spine CT 02/18/17 1040 Signed Impressions: Service Date/Time: January 10:57 - CONCLUSION: Normal examination for a patient of this age. Lenin Franco MD Abdomen/Pelvis CT 02/18/17 1040 Signed Impressions: Service Date/Time: January 11:04 - CONCLUSION: 1. There appears to be a trace of fluid around the liver. 2. There is a mild compression fracture injury involving the anterior superior endplate of L4. The rest of the bony structures appear to be grossly intact. Lenin Franco MD Tibia/Fibula X-Ray 02/18/17 0000 Signed Impressions: Service Date/Time: January 10:37 - CONCLUSION: 1. There is a fracture through the body of the patella. 2. There are comminuted fractures involving the distal tibia and fibula. Lenin Franco MD Shoulder X-Ray 02/18/17 0000 Signed Impressions: Service Date/Time: Thursday, February 18, 2017 10:37 - CONCLUSION: Limited study. The bony structures appear to be grossly intact. No definite joint dislocation. A Lenin Franco MD Lumbar Spine CT 02/18/17 0000 Signed Impressions: Service Date/Time: January 11:04 - CONCLUSION: 1. Mild superior endplate compression fracture of L4 anteriorly. No subluxation. No retropulsion. Fahad Roger MD Lower Extremity CT 02/18/17 0000 Signed Impressions: Service Date/Time: Sunday, February 19, 2017 00:12 - CONCLUSION: 1. Comminuted tibial plafond fracture with prominent involvement of the tibiotalar joint articular surface and 1 cm depressed bone fragment. Widening of the ankle mortise. 2. horizontal distal fibular fracture. Frankie Jackson MD Chest CT 02/18/17 0000 Signed Impressions: Service Date/Time: January 11:04 - CONCLUSION: No acute intrathoracic injury Ad Langley MD Procedures Left ankle external fixator, 02/19/2017, Dr. Ibrahima Aguilar Objective Remarks in bed, nad Ice on left ankle LLE - ex-fix intact, swelling +2, no erythema, nvi, sensation intact, cap refill , calf non-tender. Posterior long-leg splint. Tenderness about the knee. Assessment & Plan Problem List: (1) Patella fracture ICD Codes: S82.009A - Unspecified fracture of unspecified patella, initial encounter for closed fracture Status: Acute Qualifiers: Qualified Codes: S82.002A - Unspecified fracture of left patella, initial encounter for closed fracture (2) Trimalleolar fracture ICD Codes: S82.853A - Displaced trimalleolar fracture of unspecified lower leg , initial encounter for closed fracture Status: Acute Qualifiers: Qualified Codes: S82.852A - Displaced trimalleolar fracture of left lower leg, initial encounter for closed fracture Assessment and Plan 1) Left ankle pilon fracture with fibula fracture s/p exfix 2) Left patella fracture, comminuted. SURGERY: Left ankle external fixator. POD#5 PLAN: This patient will need delayed open treatment of fixation left pilon ankle fracture and left patella fracture. Nonweightbearing left lower extremity Lovenox for chemical DVT prophylaxis, 40 mg daily. will hold after AM dose today Ice and elevation of the left ankle and knee. No dressing changes recommended. Splint for left knee. NPO after MN will plan for surgery tomorrow. sign consents Salomón Dennis/[facility] CONNOR Feb 25, 2017 06:57
[2017-02-25] MEDS ORDERED: WALKER WHEELS/F1 MIS (07:54)
[2017-02-25 08:00] VITALS: BP 138/82; PULSE 104; RESP 19; TEMP 96.2; O2SAT 98
[2017-02-25] MEDS: MAGNESIUM HYDROXIDE SUSP 30 ML CUP PO SCH ×2 (09:03→20:42)
[2017-02-25] MEDS: CALCIUM/VITAMIN D 250 MG/125 U TAB PO SCH ×3 (09:03→18:27)
[2017-02-25] MEDS: LACTULOSE SYRUP 20 GM/30 ML CUP PO SCH (09:03)
[2017-02-25] MEDS: DOCUSATE SODIUM 50 MG/SENNA 8.6 MG TAB PO SCH ×2 (09:03→20:42)
[2017-02-25] MEDS: GABAPENTIN 300 MG CAP PO SCH ×2 (09:03→12:09)
[2017-02-25] MEDS: MULTIVITAMINS/MINERALS THERAPEUTIC TAB PO SCH (09:03)
[2017-02-25] MEDS: BACITRACIN/POLYMYXIN B 15 GM TUBE TOPICAL SCH ×2 (09:05→21:31)
[2017-02-25 12:00] VITALS: BP 144/89; PULSE 87; RESP 18; TEMP 98.4; O2SAT 96
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
[2017-02-25] MEDS: PREGABALIN 75 MG CAP PO SCH ×2 (14:11→20:42)
[2017-02-25] MEDS: KETOROLAC TROMETHAMINE 30 MG/ML (IVP) VIAL IV PUSH SCH ×2 (14:11→18:27)
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
[2017-02-25 16:00] VITALS: BP 142/81; PULSE 103; RESP 18; TEMP 98.6; O2SAT 98
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
[2017-02-25 20:00] VITALS: BP 132/79; PULSE 99; RESP 20; TEMP 97.6; O2SAT 96
[2017-02-26] VITALS (7 sets, daily range): BP systolic 119–147; BP diastolic 71–95; PULSE 83–110; RESP 18–22; TEMP 97.3–98.8; O2SAT 94–98
[2017-02-26] MEDS: KETOROLAC TROMETHAMINE 30 MG/ML (IVP) VIAL IV PUSH SCH ×3 (01:27→13:50)
[2017-02-26] MEDS: METHOCARBAMOL 500 MG TAB PO SCH ×3 (05:45→22:56)
[2017-02-26] MEDS: PREGABALIN 75 MG CAP PO SCH ×3 (05:45→22:56)
--- NOTE | 2017-02-26 06:40 | PD.ORT.PN ---
Subjective Subjective Remarks s/p left distal tibia exfix s/p left patella fx doing well. pain controlled. no changes Objective Vitals Vital Signs Date Time Temp Pulse Resp B/P (MAP) Pulse Ox O2 Delivery O2 Flow Rate FiO2 02/26/17 04:00 97.3 103 20 119/71 (87) 96 02/26/17 00:00 98.7 93 22 130/86 (101) 98 02/25/17 20:00 97.6 99 20 132/79 (96) 96 02/25/17 16:00 98.6 103 18 142/81 (101) 98 02/25/17 12:00 98.4 87 18 144/89 (107) 96 02/25/17 08:00 96.2 104 19 138/82 (100) 98 I/O 02/25/17 02/25/17 02/25/17 02/26/17 02/26/17 02/26/17 07:00 15:00 23:00 07:00 15:00 23:00 Intake Total 720 ml 600 ml Output Total 1500 ml 950 ml 1200 ml Balance -780 ml -350 ml -1200 ml Intake Oral 720 ml 600 ml Output Urine Total 1500 ml 950 ml 1200 ml # Bowel Movements 0 1 Result Diagram: 02/25/17 0357 02/25/17 0357 Imaging Last Impressions Knee X-Ray 02/19/17 0000 Signed Impressions: Service Date/Time: Sunday, February 19, 2017 16:31 - CONCLUSION: 1. Comminuted left patellar fracture. Scott Erazo MD Ankle X-Ray 02/19/17 0000 Signed Impressions: Service Date/Time: Sunday, February 19, 2017 16:31 - CONCLUSION: 1. Status post left ankle external fixation, as above. Scott Erazo MD Pelvis X-Ray 02/18/17 1040 Signed Impressions: Service Date/Time: January 10:37 - CONCLUSION: The bony structures are grossly intact. A CT scan of the abdomen and pelvis were performed for further evaluation. Lenin Franco MD Maxillofacial CT 02/18/17 1040 Signed Impressions: Service Date/Time: January 10:57 - CONCLUSION: 1. There are bilateral nasal bone fractures which are mildly displaced. There is surrounding soft tissue swelling. 2. The rest of the bony structures of the facial bones are grossly intact. Lenin Franco MD Head CT 02/18/17 1040 Signed Impressions: Service Date/Time: January 10:57 - CONCLUSION: 1. Unremarkable CT scan of the brain. 2. Nondisplaced fractures involving the nasal bones. Lenin Franco MD Chest X-Ray 02/18/17 1040 Signed Impressions: Service Date/Time: January 10:37 - CONCLUSION: No acute intrathoracic disease. Lenin Franco MD Cervical Spine CT 02/18/17 1040 Signed Impressions: Service Date/Time: January 10:57 - CONCLUSION: Normal examination for a patient of this age. Lenin Franco MD Abdomen/Pelvis CT 02/18/17 1040 Signed Impressions: Service Date/Time: January 11:04 - CONCLUSION: 1. There appears to be a trace of fluid around the liver. 2. There is a mild compression fracture injury involving the anterior superior endplate of L4. The rest of the bony structures appear to be grossly intact. Lenin Franco MD Tibia/Fibula X-Ray 02/18/17 0000 Signed Impressions: Service Date/Time: January 10:37 - CONCLUSION: 1. There is a fracture through the body of the patella. 2. There are comminuted fractures involving the distal tibia and fibula. Lenin Franco MD Shoulder X-Ray 02/18/17 0000 Signed Impressions: Service Date/Time: January 10:37 - CONCLUSION: Limited study. The bony structures appear to be grossly intact. No definite joint dislocation. A Lenin Franco MD Lumbar Spine CT 02/18/17 0000 Signed Impressions: Service Date/Time: January 11:04 - CONCLUSION: 1. Mild superior endplate compression fracture of L4 anteriorly. No subluxation. No retropulsion. Fahad Roger MD Lower Extremity CT 02/18/17 0000 Signed Impressions: Service Date/Time: Sunday, February 19, 2017 00:12 - CONCLUSION: 1. Comminuted tibial plafond fracture with prominent involvement of the tibiotalar joint articular surface and 1 cm depressed bone fragment. Widening of the ankle mortise. 2. horizontal distal fibular fracture. Frankie Jackson MD Chest CT 02/18/17 0000 Signed Impressions: Service Date/Time: January 11:04 - CONCLUSION: No acute intrathoracic injury Ad Langley MD Procedures Left ankle external fixator, 02/19/2017, Dr. Ibrahima Aguilar Objective Remarks in bed, nad Ice on left ankle LLE - ex-fix intact, swelling +2, no erythema, nvi, sensation intact, cap refill , calf non-tender. Posterior long-leg splint. Tenderness about the knee. Assessment & Plan Problem List: (1) Patella fracture ICD Codes: S82.009A - Unspecified fracture of unspecified patella, initial encounter for closed fracture Status: Acute Qualifiers: Qualified Codes: S82.002A - Unspecified fracture of left patella, initial encounter for closed fracture (2) Trimalleolar fracture ICD Codes: S82.853A - Displaced trimalleolar fracture of unspecified lower leg , initial encounter for closed fracture Status: Acute Qualifiers: Qualified Codes: S82.852A - Displaced trimalleolar fracture of left lower leg, initial encounter for closed fracture Assessment and Plan 1) Left ankle pilon fracture with fibula fracture s/p exfix 2) Left patella fracture, comminuted. SURGERY: Left ankle external fixator. POD#6 PLAN: plan for OR today for ORIF of patella ankle still not ready for surgery yet. plan for next week Salomón Dennis/Eye Clinic Manager GEETA Feb 26, 2017 06:40
[2017-02-26] MEDS: MAGNESIUM HYDROXIDE SUSP 30 ML CUP PO SCH ×2 (08:00→20:26)
[2017-02-26] MEDS: CALCIUM/VITAMIN D 250 MG/125 U TAB PO SCH ×3 (08:28→18:41)
[2017-02-26] MEDS: DOCUSATE SODIUM 50 MG/SENNA 8.6 MG TAB PO SCH ×2 (08:28→20:26)
[2017-02-26] MEDS: LACTULOSE SYRUP 20 GM/30 ML CUP PO SCH (08:28)
[2017-02-26] MEDS: MULTIVITAMINS/MINERALS THERAPEUTIC TAB PO SCH (08:29)
[2017-02-26] MEDS ORDERED: VANCOMYCIN HCL 1000 MG VIAL ONE (08:47)
[2017-02-26] MEDS ORDERED: BUPIVACAINE/EPINEPHRINE 0.25% PF 30 ML VIAL ONE (08:47)
[2017-02-26] MEDS ORDERED: GENTAMICIN SULFATE 80 MG/2 ML VIAL ONE (08:47)
[2017-02-26] MEDS ORDERED: ACETAMINOPHEN 1000 MG/100 ML 100 ML IV ONE (09:47)
[2017-02-26] MEDS ORDERED: ALBUMIN 5% INJ 500 ML IV ONE (10:16)
[2017-02-26] MEDS ORDERED: VANCOMYCIN HCL 1000 MG VIAL IV ONE (11:17)
[2017-02-26] MEDS ORDERED: ceFAZolin INJ 1,000 MG VIAL IV ONE ×2 (11:33→12:00)
[2017-02-26] MEDS ORDERED: GLYCOPYRROLATE 1 MG/5 ML SYRINGE IV PUSH ONE (12:00)
[2017-02-26] MEDS ORDERED: DEXAMETHASONE SOD PHOS 4 MG/ML VIAL IV ONE (12:00)
[2017-02-26] MEDS ORDERED: LIDOCAINE HCL 1% PF 5 ML SYRINGE OTHER ONE (12:00)
[2017-02-26] MEDS ORDERED: PROPOFOL 200 MG/20 ML AMP IV ONE (12:00)
[2017-02-26] MEDS ORDERED: ROCURONIUM INJ 50 MG/5 ML SYRINGE IV PUSH ONE (12:00)
[2017-02-26] MEDS ORDERED: NEOSTIGMINE 5 MG/5 ML SYRINGE IV PUSH ONE (12:00)
[2017-02-26] MEDS ORDERED: ESMOLOL HCL 100 MG/10 ML VIAL IV ONE (12:00)
[2017-02-26] MEDS ORDERED: ONDANSETRON HCL 4 MG/2 ML VIAL IV ONE (12:00)
[2017-02-26] MEDS ORDERED: PHENYLEPH/NS 1000 MCG/10 ML SYR IV ONE (12:00)
[2017-02-26] MEDS ORDERED: BACITRACIN TOP OINT 15 GM TUBE ONE (12:09)
--- NOTE | 2017-02-26 12:09 | PD.OP ---
cc: Myron Green MD Operative Report Date of Surgery: Feb 26, 2017 Preoperative Diagnosis: Comminuted displaced left patella fracture Postoperative Diagnosis: Procedure: Open treatment of left patella fracture with partial patellectomy and patellar tendon repair Anesthesia: Gen. Surgeon: Myron Green Svp Digital Ad Sales(s): MICKI Dill PA-C The surgical procedure was assisted by my physician assistant case manager. My P.A. presence was necessary throughout this case for the manipulation and positioning of the surgical extremity. My P.A. was assisting me throughout the duration of this procedure. The skill set of a physician assistant case manager was medically necessary to complete this procedure. During the surgical case the surgical technology instructor was working at the back table and the physician assistant case manager was directly assisting me. Operation and Findings: This patient had an injury resulting in displaced comminuted left patella fracture. Informed consent was confirmed preoperatively and informed consent was obtained. I had a detailed discussion with the patient regarding the risks and benefits of surgery. Patient was brought to the operating room and placed on the OR table. IV sedation and GETA were administered by anesthesiologist and IV antibiotics were given prior to incision. A timeout procedure was performed. The operative leg was prepped with alcohol followed by Hibiclens and draped in the usual sterile fashion. The procedure began with a 4-inch incision over the anterior knee. Subcutaneous tissue was dissected with Bovie. At this point the fracture site was visualized. Fracture was now cleaned with curettes. At this point attention was turned to reduction. At this point it was noted that the fracture was very comminuted. Some of the pieces were too small for fixation. A partial patellectomy was now performed. The inferior pole of the patella was excised. The comminuted fragments were excised. 3 drill tunnels were created from inferior to superior across the body of the patella. Two #5 FiberWire sutures were now passed through the patellar tendon in a [place] style fashion. The sutures were now passed through the drill holes of the patella. The patella was now reduced to the patellar tendon. Sutures were tensioned and tied. Fluoroscopy confirmed that the patella was in appropriate position. The remainder of the retinaculum was now closed with #1 Vicryls. Subcutaneous tissue was closed with 3-0 Vicryl and skin was closed with lupe. Sterile dressings were applied. The patient placed into a knee immobilizer and was transferred to recovery in stable condition. Needle and sponge counts were correct. Myron Green MD Feb 26, 2017 12:09
--- NOTE | 2017-02-26 12:26 | RADRPT ---
EXAM DATE/TIME: 02/26/2017 11:55 [facility] COMPARISON: No previous studies available for comparison. INDICATIONS : Left knee open reduction internal fixation. MEDICAL HISTORY : None. SURGICAL HISTORY : None. ENCOUNTER: Initial ACUITY: 1 day PAIN SCORE: Non-responsive. LOCATION: Left knee FINDINGS: AP and lateral views of the left knee reveal an inferior pole patella fracture with resection of the inferior fragments. Air in the soft tissues. CONCLUSION: 1. Inferior pole patellar fracture with air in surrounding soft tissues. Inferior bone fragments have been removed. Fahad Roger MD on February 26, 2017 at 12:20 Board Certified Radiologist. This report was verified electronically.
[2017-02-26] MEDS ORDERED: DO NOT ADM ANY ANTICOAGULANT DRUGS PRN (12:35)
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
[2017-02-26] MEDS ORDERED: *morphine SULFATE 10 MG/ML PERIprocedure ONLY ONE ×2 (12:46→12:55)
[2017-02-26] MEDS ORDERED: Post-op Orders (for Pharmacy) XX ONE (13:00)
[2017-02-26] MEDS: LACTATED RINGER'S 1000 ML INJ 1,000 ML IV SCH (13:00)
[2017-02-26] MEDS ORDERED: MIDAZOLAM HCL 2 MG/2 ML VIAL ONE (13:36)
[2017-02-26] MEDS ORDERED: MORPHINE SULFATE 4 MG/ML INJ ONE (13:37)
[2017-02-26] MEDS: fentaNYL 50 MCG/HR PATCH T-DERMAL SCH (14:07)
[2017-02-26] MEDS: REMOVE OLD DURAGESIC (FENTANYL) PATCH T-DERMAL SCH (14:08)
[2017-02-26] MEDS: ceFAZolin 2 GM PREMIX 50 ML IV SCH (18:37)
[2017-02-27] VITALS: BP 142/87; PULSE 93; RESP 20; TEMP 100.4; O2SAT 100
[2017-02-27] MEDS: KETOROLAC TROMETHAMINE 30 MG/ML (IVP) VIAL IV PUSH SCH ×5 (00:03→21:54)
[2017-02-27] MEDS: BACITRACIN/POLYMYXIN B 15 GM TUBE TOPICAL SCH ×3 (00:04→21:00)
[2017-02-27] MEDS: LACTATED RINGER'S 1000 ML INJ 1,000 ML IV SCH ×3 (00:44→21:58)
[2017-02-27 01:00] VITALS: TEMP 100
[2017-02-27 04:00] VITALS: BP 143/85; PULSE 77; RESP 20; TEMP 98.9; O2SAT 99
[2017-02-27] MEDS: ceFAZolin 2 GM PREMIX 50 ML IV SCH ×3 (04:53→17:32)
[2017-02-27 05:02] LABS: AUTOMATED NEUTROPHIL # 5.4 TH/MM3 (1.8-7.7); BASOPHIL % 0.3 % (0.0-2.0); EOSINOPHIL % 0.5 % (0.0-4.0); HEMOGLOBIN 8.5 GM/DL (13.0-17.0); LYMPH % 20.9 % (9.0-44.0); LYMPHOCYTE # 1.7 TH/MM3 (1.0-4.8); MEAN CELL VOLUME 87.1 FL (80.0-100.0); MEAN CORPUSCULAR HEMOGLOBIN 30.9 PG (27.0-34.0); MEAN CORPUSCULAR HGB CONC 35.4 % (32.0-36.0); MEAN PLATELET VOLUME 6.5 FL (7.0-11.0); MONO % 10.3 % (0.0-8.0); MONOCYTE # 0.8 TH/MM3 (0-0.9); PLATELET COUNT 500 TH/MM3 (150-450); RED BLOOD COUNT 2.76 MIL/MM3 (4.50-5.90); RED CELL DISTRIBUTION WIDTH 12.3 % (11.6-17.2); WHITE BLOOD COUNT 7.9 TH/MM3 (4.0-11.0)
[2017-02-27] MEDS: METHOCARBAMOL 500 MG TAB PO SCH ×3 (05:19→21:53)
[2017-02-27] MEDS: PREGABALIN 75 MG CAP PO SCH ×3 (05:19→21:53)
[2017-02-27 05:24] LABS: BICARBONATE 32.6 MEQ/L (21.0-32.0); CALCIUM 8.7 MG/DL (8.5-10.1); CREATININE 0.73 MG/DL (0.60-1.30)
--- NOTE | 2017-02-27 06:51 | PD.ORT.PN ---
Subjective Subjective Remarks s/p left distal tibia exfix POD 1 s/p ORIF left patella and tendon reconstruction doing well. pain controlled. no changes Objective Vitals Vital Signs Date Time Temp Pulse Resp B/P (MAP) Pulse Ox O2 Delivery O2 Flow Rate FiO2 02/27/17 04:00 98.9 77 20 143/85 (104) 99 02/27/17 01:00 100.0 02/27/17 00:00 100.4 93 20 142/87 (105) 100 02/26/17 20:00 98.8 108 20 147/95 (112) 97 02/26/17 16:25 94 21 02/26/17 16:00 97.7 110 19 138/80 (99) 97 02/26/17 14:09 94 02/26/17 13:00 15 02/26/17 12:51 15 02/26/17 12:35 98.0 81 16 141/87 (105) 99 Nasal Cannula 3 02/26/17 08:00 98.6 83 18 128/76 (93) 98 I/O 02/26/17 02/26/17 02/26/17 02/27/17 02/27/17 02/27/17 07:00 15:00 23:00 07:00 15:00 23:00 Intake Total 452 ml 240 ml Output Total 1600 ml 1400 ml 3600 ml Balance -1600 ml -948 ml -3360 ml Intake Oral 240 ml IV Total 452 ml Output Urine Total 1600 ml 1400 ml 3600 ml # Voids 0 Result Diagram: 02/27/17 0433 02/27/17 0433 Imaging Last Impressions Knee X-Ray 02/19/17 0000 Signed Impressions: Service Date/Time: Sunday, February 19, 2017 16:31 - CONCLUSION: 1. Comminuted left patellar fracture. Scott Erazo MD Ankle X-Ray 02/19/17 0000 Signed Impressions: Service Date/Time: Sunday, February 19, 2017 16:31 - CONCLUSION: 1. Status post left ankle external fixation, as above. Scott Erazo MD Pelvis X-Ray 02/18/17 1040 Signed Impressions: Service Date/Time: January 10:37 - CONCLUSION: The bony structures are grossly intact. A CT scan of the abdomen and pelvis were performed for further evaluation. Lenin Franco MD Maxillofacial CT 02/18/17 1040 Signed Impressions: Service Date/Time: January 10:57 - CONCLUSION: 1. There are bilateral nasal bone fractures which are mildly displaced. There is surrounding soft tissue swelling. 2. The rest of the bony structures of the facial bones are grossly intact. Lenin Franco MD Head CT 02/18/17 1040 Signed Impressions: Service Date/Time: January 10:57 - CONCLUSION: 1. Unremarkable CT scan of the brain. 2. Nondisplaced fractures involving the nasal bones. Lenin Franco MD Chest X-Ray 02/18/170 Signed Impressions: Service Date/Time: January 10:37 - CONCLUSION: No acute intrathoracic disease. Lenin Franco MD Cervical Spine CT 02/18/170 Signed Impressions: Service Date/Time: January 10:57 - CONCLUSION: Normal examination for a patient of this age. Lenin Franco MD Abdomen/Pelvis CT 02/18/17 1040 Signed Impressions: Service Date/Time: January 11:04 - CONCLUSION: 1. There appears to be a trace of fluid around the liver. 2. There is a mild compression fracture injury involving the anterior superior endplate of L4. The rest of the bony structures appear to be grossly intact. Lenin Franco MD Tibia/Fibula X-Ray 02/18/17 0000 Signed Impressions: Service Date/Time: January 10:37 - CONCLUSION: 1. There is a fracture through the body of the patella. 2. There are comminuted fractures involving the distal tibia and fibula. Lenin Franco MD Shoulder X-Ray 02/18/17 0000 Signed Impressions: Service Date/Time: January 10:37 - CONCLUSION: Limited study. The bony structures appear to be grossly intact. No definite joint dislocation. A Lenin Franco MD Lumbar Spine CT 02/18/17 0000 Signed Impressions: Service Date/Time: January 11:04 - CONCLUSION: 1. Mild superior endplate compression fracture of L4 anteriorly. No subluxation. No retropulsion. Fahad Roger MD Lower Extremity CT 02/18/17 0000 Signed Impressions: Service Date/Time: Sunday, February 19, 2017 00:12 - CONCLUSION: 1. Comminuted tibial plafond fracture with prominent involvement of the tibiotalar joint articular surface and 1 cm depressed bone fragment. Widening of the ankle mortise. 2. horizontal distal fibular fracture. Frankie Jackson MD Chest CT 02/18/17 0000 Signed Impressions: Service Date/Time: January 11:04 - CONCLUSION: No acute intrathoracic injury Ad Langley MD Procedures Left ankle external fixator, 02/19/2017, Dr. Ibrahima Aguilar Objective Remarks in bed, nad Ice on left ankle LLE - ex-fix intact, swelling +2, no erythema, nvi, sensation intact, cap refill , calf non-tender. dressings clean and dry. +kne brace Assessment & Plan Problem List: (1) Patella fracture ICD Codes: S82.009A - Unspecified fracture of unspecified patella, initial encounter for closed fracture Status: Acute Qualifiers: Qualified Codes: S82.002A - Unspecified fracture of left patella, initial encounter for closed fracture (2) Trimalleolar fracture ICD Codes: S82.853A - Displaced trimalleolar fracture of unspecified lower leg , initial encounter for closed fracture Status: Acute Qualifiers: Qualified Codes: S82.852A - Displaced trimalleolar fracture of left lower leg, initial encounter for closed fracture Assessment and Plan 1) Left ankle pilon fracture with fibula fracture s/p exfix 2) Left patella fracture, comminuted s/p Tendon reconstruction - POD 1 SURGERY: Left ankle external fixator. POD#7 PLAN: NWB LLE daily dressing changes to knee elevate pin care BID plan for possible surgery of ankle on Wednesday NPO after MN wednesday Toradol 30mg Q8H x 9 doses Salomón Dennis/Quality Analyst/Technical Writer GEETA Feb 27, 2017 06:51
[2017-02-27] MEDS: CALCIUM/VITAMIN D 250 MG/125 U TAB PO SCH ×3 (08:07→17:30)
[2017-02-27] MEDS: MULTIVITAMINS/MINERALS THERAPEUTIC TAB PO SCH (08:07)
[2017-02-27] MEDS: DOCUSATE SODIUM 50 MG/SENNA 8.6 MG TAB PO SCH ×2 (08:07→19:56)
[2017-02-27] MEDS: LACTULOSE SYRUP 20 GM/30 ML CUP PO SCH (08:07)
[2017-02-27] MEDS: MAGNESIUM HYDROXIDE SUSP 30 ML CUP PO SCH ×2 (08:08→19:56)
[2017-02-27 08:09] VITALS: BP 143/80; PULSE 107; RESP 17; TEMP 98.5; O2SAT 98
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
[2017-02-27 17:18] VITALS: O2SAT 98
[2017-02-27 20:45] VITALS: BP 139/87; PULSE 92; RESP 18; TEMP 98; O2SAT 99
[2017-02-28 00:15] VITALS: BP 134/83; PULSE 80; RESP 18; TEMP 97.8; O2SAT 99
[2017-02-28] MEDS: LACTATED RINGER'S 1000 ML INJ 1,000 ML IV SCH ×2 (00:52→14:30)
[2017-02-28] MEDS: ceFAZolin 2 GM PREMIX 50 ML IV SCH ×2 (03:46→11:35)
[2017-02-28] MEDS: METHOCARBAMOL 500 MG TAB PO SCH ×3 (05:42→21:46)
[2017-02-28] MEDS: PREGABALIN 75 MG CAP PO SCH (05:42)
[2017-02-28] MEDS: KETOROLAC TROMETHAMINE 30 MG/ML (IVP) VIAL IV PUSH SCH ×3 (05:45→21:46)
[2017-02-28] MEDS: ENOXAPARIN SODIUM 40 MG/0.4 ML SYRINGE SQ SCH (05:46)
--- NOTE | 2017-02-28 06:58 | PD.ORT.PN ---
Subjective Subjective Remarks s/p left distal tibia exfix POD 2 s/p ORIF left patella and tendon reconstruction doing well. pain controlled. no changes Objective Vitals Vital Signs Date Time Temp Pulse Resp B/P (MAP) Pulse Ox O2 Delivery O2 Flow Rate FiO2 02/28/17 00:15 97.8 80 18 134/83 (100) 99 02/27/17 20:45 98.0 92 18 139/87 (104) 99 02/27/17 17:18 98 21 02/27/17 08:09 98.5 107 17 143/80 (101) 98 I/O 02/27/17 02/27/17 02/27/17 02/28/17 02/28/17 02/28/17 07:00 15:00 23:00 07:00 15:00 23:00 Intake Total 1067 ml 1130 ml 360 ml Output Total 3600 ml 2100 ml 2000 ml Balance -2533 ml -970 ml -1640 ml Intake Oral 240 ml 960 ml 360 ml IV Total 827 ml 170 ml Output Urine Total 3600 ml 2100 ml 2000 ml # Voids 1 # Bowel Movements 1 1 0 Result Diagram: 02/27/17 0433 02/27/17 0433 Imaging Last Impressions Knee X-Ray 02/19/17 0000 Signed Impressions: Service Date/Time: Sunday, February 19, 2017 16:31 - CONCLUSION: 1. Comminuted left patellar fracture. Scott Erazo MD Ankle X-Ray 02/19/17 0000 Signed Impressions: Service Date/Time: Sunday, February 19, 2017 16:31 - CONCLUSION: 1. Status post left ankle external fixation, as above. Scott Erazo MD Pelvis X-Ray 02/18/17 1040 Signed Impressions: Service Date/Time: January 10:37 - CONCLUSION: The bony structures are grossly intact. A CT scan of the abdomen and pelvis were performed for further evaluation. Lenin Franco MD Maxillofacial CT 02/18/17 1040 Signed Impressions: Service Date/Time: January 10:57 - CONCLUSION: 1. There are bilateral nasal bone fractures which are mildly displaced. There is surrounding soft tissue swelling. 2. The rest of the bony structures of the facial bones are grossly intact. Lenin Franco MD Head CT 02/18/17 1040 Signed Impressions: Service Date/Time: January 10:57 - CONCLUSION: 1. Unremarkable CT scan of the brain. 2. Nondisplaced fractures involving the nasal bones. Lenin Franco MD Chest X-Ray 02/18/17 1040 Signed Impressions: Service Date/Time: January 10:37 - CONCLUSION: No acute intrathoracic disease. Lenin Franco MD Cervical Spine CT 02/18/17 1040 Signed Impressions: Service Date/Time: January 10:57 - CONCLUSION: Normal examination for a patient of this age. Lenin Franco MD Abdomen/Pelvis CT 02/18/17 1040 Signed Impressions: Service Date/Time: January 11:04 - CONCLUSION: 1. There appears to be a trace of fluid around the liver. 2. There is a mild compression fracture injury involving the anterior superior endplate of L4. The rest of the bony structures appear to be grossly intact. Lenin Franco MD Tibia/Fibula X-Ray 02/18/17 0000 Signed Impressions: Service Date/Time: January 10:37 - CONCLUSION: 1. There is a fracture through the body of the patella. 2. There are comminuted fractures involving the distal tibia and fibula. Lenin Franco MD Shoulder X-Ray 02/18/17 0000 Signed Impressions: Service Date/Time: January 10:37 - CONCLUSION: Limited study. The bony structures appear to be grossly intact. No definite joint dislocation. A Lenin Franco MD Lumbar Spine CT 02/18/17 0000 Signed Impressions: Service Date/Time: January 11:04 - CONCLUSION: 1. Mild superior endplate compression fracture of L4 anteriorly. No subluxation. No retropulsion. Fahad Roger MD Lower Extremity CT 02/18/17 0000 Signed Impressions: Service Date/Time: Sunday, February 19, 2017 00:12 - CONCLUSION: 1. Comminuted tibial plafond fracture with prominent involvement of the tibiotalar joint articular surface and 1 cm depressed bone fragment. Widening of the ankle mortise. 2. horizontal distal fibular fracture. Frankie Jackson MD Chest CT 02/18/17 0000 Signed Impressions: Service Date/Time: , February 18, 2017 11:04 - CONCLUSION: No acute intrathoracic injury Ad Langley MD Procedures Left ankle external fixator, 02/19/2017, Dr. Ibrahima Aguilar Objective Remarks in bed, nad Ice on left ankle LLE - ex-fix intact, swelling +2, no erythema, nvi, sensation intact, cap refill , calf non-tender. dressings clean and dry. +kne brace Assessment & Plan Problem List: (1) Patella fracture ICD Codes: S82.009A - Unspecified fracture of unspecified patella, initial encounter for closed fracture Status: Acute Qualifiers: Qualified Codes: S82.002A - Unspecified fracture of left patella, initial encounter for closed fracture (2) Trimalleolar fracture ICD Codes: S82.853A - Displaced trimalleolar fracture of unspecified lower leg , initial encounter for closed fracture Status: Acute Qualifiers: Qualified Codes: S82.852A - Displaced trimalleolar fracture of left lower leg, initial encounter for closed fracture Assessment and Plan 1) Left ankle pilon fracture with fibula fracture s/p exfix 2) Left patella fracture, comminuted s/p Tendon reconstruction - POD 2 SURGERY: Left ankle external fixator. POD#8 PLAN: NWB LLE daily dressing changes to knee elevate pin care BID plan for possible surgery wednesday if swelling appropriate. likely tueday NPO after MN Toradol 30mg Q8H x 9 doses Salomón Dennis/Adult [employer]acy In[employer] GEETA Feb 28, 2017 06:58
[2017-02-28 08:00] VITALS: BP 151/88; PULSE 118; RESP 16; TEMP 99.3; O2SAT 97
[2017-02-28] MEDS: MAGNESIUM HYDROXIDE SUSP 30 ML CUP PO SCH ×2 (08:45→21:46)
[2017-02-28] MEDS: MULTIVITAMINS/MINERALS THERAPEUTIC TAB PO SCH (08:45)
[2017-02-28] MEDS: LACTULOSE SYRUP 20 GM/30 ML CUP PO SCH (08:45)
[2017-02-28] MEDS: DOCUSATE SODIUM 50 MG/SENNA 8.6 MG TAB PO SCH ×2 (08:45→21:46)
[2017-02-28] MEDS: CALCIUM/VITAMIN D 250 MG/125 U TAB PO SCH ×3 (08:45→18:10)
[2017-02-28] MEDS: BACITRACIN/POLYMYXIN B 15 GM TUBE TOPICAL SCH ×2 (08:59→21:48)
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
[2017-02-28 12:00] VITALS: BP 150/99; PULSE 108; RESP 16; TEMP 99.7; O2SAT 98
[2017-02-28] MEDS: PREGABALIN 100 MG CAP PO SCH ×2 (14:21→21:46)
[2017-02-28 16:00] VITALS: BP 140/82; PULSE 106; RESP 16; TEMP 99.3; O2SAT 97
[2017-02-28 20:00] VITALS: BP 134/80; PULSE 107; RESP 18; TEMP 99.6; O2SAT 98
[2017-02-28] MEDS ORDERED: CHLORHEXIDINE GLUCONATE 2 % 1 PACK (2 CLOTHS) TOPICAL PRN (22:00)
[2017-02-28] MEDS ORDERED: INSULIN HUMAN REGULAR 1,000 UNITS/10 ML VIAL SQ PRN (22:00)
[2017-02-28] MEDS ORDERED: METOPROLOL TARTRATE 25 MG TAB PO PRN (22:00)
[2017-02-28] MEDS ORDERED: SODIUM CHLORID 0.9% 500 ML IV PRN (22:00)
[2017-02-28] MEDS ORDERED: LACTATED RINGER'S 1000 ML IV PRN (22:00)
[2017-02-28] MEDS ORDERED: POVIDONE IODINE 5% (ANTISEPSIS KIT) 4 APPLICATIONS EACH NARE PRN (22:00)
[2017-03-01] VITALS (7 sets, daily range): BP systolic 131–151; BP diastolic 75–94; PULSE 82–99; RESP 16–20; TEMP 98.2–100; O2SAT 97–100
[2017-03-01] MEDS: KETOROLAC TROMETHAMINE 30 MG/ML (IVP) VIAL IV PUSH SCH ×3 (05:46→22:35)
[2017-03-01] MEDS: MORPHINE SULFATE 2 MG/ML INJ IV PUSH PRN (05:46)
[2017-03-01] MEDS: PREGABALIN 100 MG CAP PO SCH ×3 (05:47→22:34)
[2017-03-01] MEDS: METHOCARBAMOL 500 MG TAB PO SCH ×4 (05:47→20:29)
--- NOTE | 2017-03-01 06:39 | PD.ORT.PN ---
Subjective Subjective Remarks Pain controlled and resting comfortably status post external fixation of left ankle Objective Vitals Vital Signs Date Time Temp Pulse Resp B/P (MAP) Pulse Ox O2 Delivery O2 Flow Rate FiO2 03/01/17 04:00 99.9 90 20 139/82 (101) 97 03/01/17 00:00 100.0 87 20 131/76 (94) 99 02/28/17 20:00 99.6 107 18 134/80 (98) 98 02/28/17 16:00 99.3 106 16 140/82 (101) 97 02/28/17 12:00 99.7 108 16 150/99 (116) 98 02/28/17 08:00 99.3 118 16 151/88 (109) 97 I/O 02/28/17 02/28/17 02/28/17 03/01/17 03/01/17 03/01/17 07:00 15:00 23:00 07:00 15:00 23:00 Intake Total 360 ml 600 ml 1320 ml 0 ml Output Total 2000 ml 1200 ml 550 ml Balance -1640 ml 600 ml 120 ml -550 ml Intake Oral 360 ml 600 ml 1320 ml 0 ml Output Urine Total 2000 ml 1200 ml 550 ml # Voids 3 4 # Bowel Movements 0 1 1 Result Diagram: 02/27/17 0433 02/27/17 0433 Imaging Last Impressions Knee X-Ray 02/19/17 0000 Signed Impressions: Service Date/Time: Sunday, February 19, 2017 16:31 - CONCLUSION: 1. Comminuted left patellar fracture. Scott Erazo MD Ankle X-Ray 02/19/17 0000 Signed Impressions: Service Date/Time: Sunday, February 19, 2017 16:31 - CONCLUSION: 1. Status post left ankle external fixation, as above. Scott Erazo MD Pelvis X-Ray 02/18/17 1040 Signed Impressions: Service Date/Time: January 10:37 - CONCLUSION: The bony structures are grossly intact. A CT scan of the abdomen and pelvis were performed for further evaluation. Lenin Franco MD Maxillofacial CT 02/18/17 1040 Signed Impressions: Service Date/Time: January 10:57 - CONCLUSION: 1. There are bilateral nasal bone fractures which are mildly displaced. There is surrounding soft tissue swelling. 2. The rest of the bony structures of the facial bones are grossly intact. Lenin Franco MD Head CT 02/18/17 1040 Signed Impressions: Service Date/Time: January 10:57 - CONCLUSION: 1. Unremarkable CT scan of the brain. 2. Nondisplaced fractures involving the nasal bones. Lenin Franco MD Chest X-Ray 02/18/17 1040 Signed Impressions: Service Date/Time: January 10:37 - CONCLUSION: No acute intrathoracic disease. Lenin Franco MD Cervical Spine CT 02/18/17 1040 Signed Impressions: Service Date/Time: January 10:57 - CONCLUSION: Normal examination for a patient of this age. Lenin Franco MD Abdomen/Pelvis CT 02/18/17 1040 Signed Impressions: Service Date/Time: January 11:04 - CONCLUSION: 1. There appears to be a trace of fluid around the liver. 2. There is a mild compression fracture injury involving the anterior superior endplate of L4. The rest of the bony structures appear to be grossly intact. Lenin Franco MD Tibia/Fibula X-Ray 02/18/17 0000 Signed Impressions: Service Date/Time: January 10:37 - CONCLUSION: 1. There is a fracture through the body of the patella. 2. There are comminuted fractures involving the distal tibia and fibula. Lenin Franco MD Shoulder X-Ray 02/18/17 0000 Signed Impressions: Service Date/Time: January 10:37 - CONCLUSION: Limited study. The bony structures appear to be grossly intact. No definite joint dislocation. A Lenin Franco MD Lumbar Spine CT 02/18/17 0000 Signed Impressions: Service Date/Time: January 11:04 - CONCLUSION: 1. Mild superior endplate compression fracture of L4 anteriorly. No subluxation. No retropulsion. Fahad Roger MD Lower Extremity CT 02/18/17 0000 Signed Impressions: Service Date/Time: Sunday, February 19, 2017 00:12 - CONCLUSION: 1. Comminuted tibial plafond fracture with prominent involvement of the tibiotalar joint articular surface and 1 cm depressed bone fragment. Widening of the ankle mortise. 2. horizontal distal fibular fracture. Frankie Jackson MD Chest CT 02/18/17 0000 Signed Impressions: Service Date/Time: January 11:04 - CONCLUSION: No acute intrathoracic injury Ad Langley MD Procedures Left ankle external fixator, 02/19/2017, Dr. Ibrahima Aguilar Objective Remarks Lower extremity: Clean dry dressings intact with knee immobilizer in place. Ex- fix in place with swelling of +2 over ankle. Skin is intact. Intact sensation distally and is able to move all toes Assessment & Plan Problem List: (1) Patella fracture ICD Codes: S82.009A - Unspecified fracture of unspecified patella, initial encounter for closed fracture Status: Acute Qualifiers: Qualified Codes: S82.002A - Unspecified fracture of left patella, initial encounter for closed fracture (2) Trimalleolar fracture ICD Codes: S82.853A - Displaced trimalleolar fracture of unspecified lower leg , initial encounter for closed fracture Status: Acute Qualifiers: Qualified Codes: S82.852A - Displaced trimalleolar fracture of left lower leg, initial encounter for closed fracture Assessment and Plan 1) Left ankle pilon fracture with fibula fracture s/p exfix 2) Left patella fracture, comminuted s/p Tendon reconstruction - POD 3 SURGERY: Left ankle external fixator. POD#9 PLAN: NWB LLE daily dressing changes to knee elevate pin care BID Nothing by mouth after midnight for surgery on Wednesday One-time dose of Lovenox then hold after dosing Javier Pisano Jr. Mar 01, 2017 06:39
[2017-03-01] MEDS: MULTIVITAMINS/MINERALS THERAPEUTIC TAB PO SCH (07:50)
[2017-03-01] MEDS: DOCUSATE SODIUM 50 MG/SENNA 8.6 MG TAB PO SCH ×2 (07:51→20:28)
[2017-03-01] MEDS: CALCIUM/VITAMIN D 250 MG/125 U TAB PO SCH ×3 (07:51→18:00)
[2017-03-01] MEDS: MAGNESIUM HYDROXIDE SUSP 30 ML CUP PO SCH ×2 (07:51→20:32)
[2017-03-01] MEDS: LACTULOSE SYRUP 20 GM/30 ML CUP PO SCH (07:51)
[2017-03-01] MEDS: ENOXAPARIN SODIUM 40 MG/0.4 ML SYRINGE SQ SCH (07:51)
[2017-03-01] MEDS: fentaNYL 50 MCG/HR PATCH T-DERMAL SCH (08:02)
[2017-03-01] MEDS: REMOVE OLD DURAGESIC (FENTANYL) PATCH T-DERMAL SCH (09:00)
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
[2017-03-01] MEDS: BACITRACIN/POLYMYXIN B 15 GM TUBE TOPICAL SCH ×2 (20:32→21:00)
[2017-03-02] VITALS: BP 124/80; PULSE 86; RESP 16; TEMP 97.9; O2SAT 97
[2017-03-02 06:00] VITALS: BP 138/89; PULSE 83; RESP 16; TEMP 97.7; O2SAT 99
--- NOTE | 2017-03-02 06:55 | PD.ORT.PN ---
Subjective Subjective Remarks Pain controlled and resting comfortably status post external fixation of left ankle Objective Vitals Vital Signs Date Time Temp Pulse Resp B/P (MAP) Pulse Ox O2 Delivery O2 Flow Rate FiO2 03/02/17 06:00 97.7 83 16 138/89 (105) 99 03/02/17 00:00 97.9 86 16 124/80 (95) 97 03/01/17 20:00 99.4 91 16 151/94 (113) 100 03/01/17 16:00 99.7 92 18 136/88 (104) 98 03/01/17 12:00 98.8 99 17 138/82 (100) 100 03/01/17 10:08 99 03/01/17 08:00 98.2 82 18 136/75 (95) 99 I/O 03/01/17 03/01/17 03/01/17 03/02/17 03/02/17 03/02/17 07:00 15:00 23:00 07:00 15:00 23:00 Intake Total 0 ml 830 ml Output Total 550 ml 1200 ml Balance -550 ml -370 ml Intake Oral 0 ml 830 ml Output Urine Total 550 ml 1200 ml # Bowel Movements 1 Result Diagram: 02/27/17 0433 02/27/17 0433 Imaging Last Impressions Knee X-Ray 02/19/17 0000 Signed Impressions: Service Date/Time: Sunday, February 19, 2017 16:31 - CONCLUSION: 1. Comminuted left patellar fracture. Scott Erazo MD Ankle X-Ray 02/19/17 0000 Signed Impressions: Service Date/Time: Sunday, February 19, 2017 16:31 - CONCLUSION: 1. Status post left ankle external fixation, as above. Scott Erazo MD Pelvis X-Ray 02/18/17 1040 Signed Impressions: Service Date/Time: January 10:37 - CONCLUSION: The bony structures are grossly intact. A CT scan of the abdomen and pelvis were performed for further evaluation. Lenin Franco MD Maxillofacial CT 02/18/17 1040 Signed Impressions: Service Date/Time: January 10:57 - CONCLUSION: 1. There are bilateral nasal bone fractures which are mildly displaced. There is surrounding soft tissue swelling. 2. The rest of the bony structures of the facial bones are grossly intact. Lenin Franco MD Head CT 02/18/17 1040 Signed Impressions: Service Date/Time: January 10:57 - CONCLUSION: 1. Unremarkable CT scan of the brain. 2. Nondisplaced fractures involving the nasal bones. Lenin Franco MD Chest X-Ray 02/18/17 1040 Signed Impressions: Service Date/Time: January 10:37 - CONCLUSION: No acute intrathoracic disease. Lenin Franco MD Cervical Spine CT 02/18/17 1040 Signed Impressions: Service Date/Time: January 10:57 - CONCLUSION: Normal examination for a patient of this age. Lenin Franco MD Abdomen/Pelvis CT 02/18/17 1040 Signed Impressions: Service Date/Time: January 11:04 - CONCLUSION: 1. There appears to be a trace of fluid around the liver. 2. There is a mild compression fracture injury involving the anterior superior endplate of L4. The rest of the bony structures appear to be grossly intact. Lenin Franco MD Tibia/Fibula X-Ray 02/18/17 0000 Signed Impressions: Service Date/Time: January 10:37 - CONCLUSION: 1. There is a fracture through the body of the patella. 2. There are comminuted fractures involving the distal tibia and fibula. Lenin Franco MD Shoulder X-Ray 02/18/17 0000 Signed Impressions: Service Date/Time: January 10:37 - CONCLUSION: Limited study. The bony structures appear to be grossly intact. No definite joint dislocation. A Lenin Franco MD Lumbar Spine CT 02/18/17 0000 Signed Impressions: Service Date/Time: January 11:04 - CONCLUSION: 1. Mild superior endplate compression fracture of L4 anteriorly. No subluxation. No retropulsion. Fahad Roger MD Lower Extremity CT 02/18/17 0000 Signed Impressions: Service Date/Time: Sunday, February 19, 2017 00:12 - CONCLUSION: 1. Comminuted tibial plafond fracture with prominent involvement of the tibiotalar joint articular surface and 1 cm depressed bone fragment. Widening of the ankle mortise. 2. horizontal distal fibular fracture. Frankie Jackson MD Chest CT 02/18/17 0000 Signed Impressions: Service Date/Time: , February 18, 2017 11:04 - CONCLUSION: No acute intrathoracic injury Ad Langley MD Procedures Left ankle external fixator, 02/19/2017, Dr. Ibrahima Aguilar Objective Remarks Lower extremity: Clean dry dressings intact with knee immobilizer in place. Ex- fix in place with swelling of +2 over ankle. Swelling is continuing to improve Skin is intact. Intact sensation distally and is able to move all toes Assessment & Plan Problem List: (1) Patella fracture ICD Codes: S82.009A - Unspecified fracture of unspecified patella, initial encounter for closed fracture Status: Acute Qualifiers: Qualified Codes: S82.002A - Unspecified fracture of left patella, initial encounter for closed fracture (2) Trimalleolar fracture ICD Codes: S82.853A - Displaced trimalleolar fracture of unspecified lower leg , initial encounter for closed fracture Status: Acute Qualifiers: Qualified Codes: S82.852A - Displaced trimalleolar fracture of left lower leg, initial encounter for closed fracture Assessment and Plan 1) Left ankle pilon fracture with fibula fracture s/p exfix 2) Left patella fracture, comminuted s/p Tendon reconstruction - POD 4 SURGERY: Left ankle external fixator. POD#10 PLAN: NWB LLE daily dressing changes to knee, immobilizer at all times elevate pin care BID Nothing by mouth Surgery this morning with Dr. Norma Pisano,Javier Cristobal Jr. PA Mar 02, 2017 06:55
[2017-03-02] MEDS ORDERED: ENDO10TA8 PO (06:59)
[2017-03-02] MEDS ORDERED: XARE10TA PO (06:59)
[2017-03-02] MEDS ORDERED: CALCTAB19 PO (06:59)
[2017-03-02 08:00] VITALS: BP 127/80; PULSE 83; RESP 18; TEMP 97.6; O2SAT 98
[2017-03-02] MEDS: MAGNESIUM HYDROXIDE SUSP 30 ML CUP PO SCH ×2 (08:00→19:31)
[2017-03-02] MEDS: CALCIUM/VITAMIN D 250 MG/125 U TAB PO SCH ×3 (09:00→17:12)
[2017-03-02] MEDS: LACTULOSE SYRUP 20 GM/30 ML CUP PO SCH (09:00)
[2017-03-02] MEDS ORDERED: INSULIN HUMAN REGULAR 1,000 UNITS/10 ML VIAL SQ PRN (09:00)
[2017-03-02] MEDS: MULTIVITAMINS/MINERALS THERAPEUTIC TAB PO SCH (09:00)
[2017-03-02] MEDS: DOCUSATE SODIUM 50 MG/SENNA 8.6 MG TAB PO SCH ×2 (09:00→19:32)
[2017-03-02] MEDS: BACITRACIN/POLYMYXIN B 15 GM TUBE TOPICAL SCH ×2 (09:00→19:46)
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
[2017-03-02] MEDS ORDERED: LACTATED RINGER'S 1000 ML INJ 2,000 ML IV ONE (12:00)
[2017-03-02] MEDS ORDERED: ROCURONIUM INJ 50 MG/5 ML SYRINGE IV PUSH ONE (12:00)
[2017-03-02] MEDS ORDERED: NORMOSOL R INJ 1,000 ML IV ONE (12:00)
[2017-03-02] MEDS ORDERED: ONDANSETRON HCL 4 MG/2 ML VIAL IV ONE ×2 (12:00)
[2017-03-02] MEDS ORDERED: NEOSTIGMINE 5 MG/5 ML SYRINGE IV PUSH ONE (12:00)
[2017-03-02] MEDS ORDERED: PHENYLEPH/NS 1000 MCG/10 ML SYR IV ONE (12:00)
[2017-03-02] MEDS ORDERED: PROPOFOL 200 MG/20 ML AMP IV ONE ×2 (12:00)
[2017-03-02] MEDS ORDERED: LIDOCAINE HCL 1% PF 5 ML SYRINGE OTHER ONE ×2 (12:00)
[2017-03-02] MEDS ORDERED: GLYCOPYRROLATE 1 MG/5 ML SYRINGE IV PUSH ONE (12:00)
[2017-03-02] MEDS ORDERED: DEXAMETHASONE SOD PHOS 4 MG/ML VIAL IV ONE ×2 (12:00)
[2017-03-02] MEDS ORDERED: ePHEDrine/NS 25 MG/5 ML SYRINGE IV ONE (12:00)
[2017-03-02] MEDS ORDERED: VANCOMYCIN HCL 1000 MG VIAL ONE (12:14)
[2017-03-02] MEDS ORDERED: GENTAMICIN SULFATE 80 MG/2 ML VIAL ONE (12:14)
[2017-03-02] MEDS ORDERED: ACETAMINOPHEN 1000 MG/100 ML 100 ML IV ONE (12:18)
[2017-03-02] MEDS ORDERED: HYDROmorphone HCL PF 2 MG/ML VIAL ONE (12:18)
[2017-03-02] MEDS ORDERED: ceFAZolin 2 GM PREMIX 50 ML ONE (12:26)
[2017-03-02] MEDS: PREGABALIN 100 MG CAP PO SCH ×2 (14:00→23:12)
[2017-03-02] MEDS: METHOCARBAMOL 500 MG TAB PO SCH ×2 (14:00→23:12)
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
[2017-03-02] MEDS ORDERED: Post-op Orders (for Pharmacy) XX ONE (15:00)
[2017-03-02] MEDS ORDERED: *MEPERIDINE 25 MG INJ VIAL PERIprocedural Use ONLY ONE (15:16)
[2017-03-02] MEDS ORDERED: DO NOT ADM ANY ANTICOAGULANT DRUGS PRN (15:30)
[2017-03-02] MEDS ORDERED: *morphine SULFATE 10 MG/ML PERIprocedure ONLY ONE (15:31)
[2017-03-02] MEDS: LACTATED RINGER'S 1000 ML INJ 1,000 ML IV SCH (15:36)
[2017-03-02] MEDS: ceFAZolin 2 GM PREMIX 50 ML IV SCH (19:32)
[2017-03-02] MEDS: MORPHINE SULFATE 2 MG/ML INJ IV PUSH PRN (19:43)
[2017-03-02 20:00] VITALS: BP 141/84; PULSE 107; RESP 16; TEMP 98.8; O2SAT 98
[2017-03-02] MEDS: KETOROLAC TROMETHAMINE 30 MG/ML (IVP) VIAL IVP SCH (23:12)
[2017-03-03] VITALS (8 sets, daily range): BP systolic 113–133; BP diastolic 63–83; PULSE 79–100; RESP 15–18; TEMP 98.5–99.8; O2SAT 97–99
[2017-03-03] MEDS: LACTATED RINGER'S 1000 ML INJ 1,000 ML IV SCH (00:28)
[2017-03-03] MEDS: VANCOMYCIN INJ 1,000 MG in SODIUM CHLOR 0.9% 250 ML INJ 250 ML IV SCH ×2 (00:28→12:00)
[2017-03-03] MEDS: ceFAZolin 2 GM PREMIX 50 ML IV SCH ×3 (03:49→19:49)
[2017-03-03 04:34] LABS: AUTOMATED NEUTROPHIL # 6.3 TH/MM3 (1.8-7.7); BASOPHIL % 0.5 % (0.0-2.0); EOSINOPHIL # 0.1 TH/MM3 (0-0.4); EOSINOPHIL % 0.7 % (0.0-4.0); HEMATOCRIT 23.5 % (39.0-51.0); HEMOGLOBIN 8.4 GM/DL (13.0-17.0); LYMPH % 19.4 % (9.0-44.0); LYMPHOCYTE # 1.7 TH/MM3 (1.0-4.8); MEAN CELL VOLUME 87.5 FL (80.0-100.0); MEAN CORPUSCULAR HEMOGLOBIN 31.3 PG (27.0-34.0); MEAN CORPUSCULAR HGB CONC 35.8 % (32.0-36.0); MEAN PLATELET VOLUME 6.8 FL (7.0-11.0); MONO % 6.4 % (0.0-8.0); MONOCYTE # 0.6 TH/MM3 (0-0.9); PLATELET COUNT 561 TH/MM3 (150-450); RED BLOOD COUNT 2.68 MIL/MM3 (4.50-5.90); RED CELL DISTRIBUTION WIDTH 12.6 % (11.6-17.2); WHITE BLOOD COUNT 8.6 TH/MM3 (4.0-11.0)
[2017-03-03 04:55] LABS: ALBUMIN 2.8 GM/DL (3.4-5.0); AST (GOT) 16 U/L (15-37); BICARBONATE 30.8 MEQ/L (21.0-32.0); BLOOD UREA NITROGEN 17 MG/DL (7-18); CALCIUM 8.2 MG/DL (8.5-10.1); CHLORIDE 97 MEQ/L (98-107); CREATININE 0.86 MG/DL (0.60-1.30); GLOMERULAR FILTRATION RATE 107 ML/MIN (>89); GLUCOSE,RANDOM 98 MG/DL (74-106); SODIUM (NA) 135 MEQ/L (136-145)
[2017-03-03 04:58] LABS: ALKALINE PHOSPHATASE 99 U/L (45-117); ALT (GPT) 18 U/L (12-78); TOTAL BILIRUBIN ADULT 0.5 MG/DL (0.2-1.0); TOTAL PROTEIN 6.7 GM/DL (6.4-8.2)
[2017-03-03] MEDS: PREGABALIN 100 MG CAP PO SCH ×3 (06:05→22:36)
[2017-03-03] MEDS: KETOROLAC TROMETHAMINE 30 MG/ML (IVP) VIAL IVP SCH ×3 (06:06→22:36)
[2017-03-03] MEDS: METHOCARBAMOL 500 MG TAB PO SCH ×3 (06:06→22:36)
--- NOTE | 2017-03-03 06:34 | PD.ORT.PN ---
Subjective Subjective Remarks Pain controlled and resting comfortably status post external fixation of left ankle Objective Vitals Vital Signs Date Time Temp Pulse Resp B/P (MAP) Pulse Ox O2 Delivery O2 Flow Rate FiO2 03/03/17 00:00 99.2 91 15 119/76 (90) 97 03/02/17 20:00 98.8 107 16 141/84 (103) 98 03/02/17 16:00 97.6 92 16 132/84 (100) 96 Room Air 03/02/17 15:45 94 16 140/89 (106) 95 Room Air 03/02/17 15:36 15 03/02/17 15:30 93 15 137/86 (103) 94 Room Air 03/02/17 15:15 94 15 136/85 (102) 98 Nasal Cannula 2 03/02/17 15:00 97.4 98 14 129/81 (97) 100 Nasal Cannula 3 03/02/17 08:00 97.6 83 18 127/80 (96) 98 I/O 03/02/17 03/02/17 03/02/17 03/03/17 03/03/17 03/03/17 07:00 15:00 23:00 07:00 15:00 23:00 Intake Total 1000 ml Output Total 650 ml Balance 350 ml Other 1000 ml Output Urine Total 600 ml Estimated Blood Loss 50 ml # Voids 0 Result Diagram: 03/03/17 0351 03/03/17 0351 Imaging Last Impressions Knee X-Ray 02/19/17 0000 Signed Impressions: Service Date/Time: Sunday, February 19, 2017 16:31 - CONCLUSION: 1. Comminuted left patellar fracture. Scott Erazo MD Ankle X-Ray 02/19/17 0000 Signed Impressions: Service Date/Time: Sunday, February 19, 2017 16:31 - CONCLUSION: 1. Status post left ankle external fixation, as above. Scott Erazo MD Pelvis X-Ray 02/18/17 1040 Signed Impressions: Service Date/Time: January 10:37 - CONCLUSION: The bony structures are grossly intact. A CT scan of the abdomen and pelvis were performed for further evaluation. Lenin Franco MD Maxillofacial CT 02/18/17 1040 Signed Impressions: Service Date/Time: January 10:57 - CONCLUSION: 1. There are bilateral nasal bone fractures which are mildly displaced. There is surrounding soft tissue swelling. 2. The rest of the bony structures of the facial bones are grossly intact. Lenin Franco MD Head CT 02/18/17 1040 Signed Impressions: Service Date/Time: January 10:57 - CONCLUSION: 1. Unremarkable CT scan of the brain. 2. Nondisplaced fractures involving the nasal bones. Lenin Franco MD Chest X-Ray 02/18/17 1040 Signed Impressions: Service Date/Time: January 10:37 - CONCLUSION: No acute intrathoracic disease. Lenin Franco MD Cervical Spine CT 02/18/17 1040 Signed Impressions: Service Date/Time: January 10:57 - CONCLUSION: Normal examination for a patient of this age. Lenin Franco MD Abdomen/Pelvis CT 02/18/17 1040 Signed Impressions: Service Date/Time: January 11:04 - CONCLUSION: 1. There appears to be a trace of fluid around the liver. 2. There is a mild compression fracture injury involving the anterior superior endplate of L4. The rest of the bony structures appear to be grossly intact. Lenin Franco MD Tibia/Fibula X-Ray 02/18/17 0000 Signed Impressions: Service Date/Time: January 10:37 - CONCLUSION: 1. There is a fracture through the body of the patella. 2. There are comminuted fractures involving the distal tibia and fibula. Lenin Franco MD Shoulder X-Ray 02/18/17 0000 Signed Impressions: Service Date/Time: January 10:37 - CONCLUSION: Limited study. The bony structures appear to be grossly intact. No definite joint dislocation. A Lenin Franco MD Lumbar Spine CT 02/18/17 0000 Signed Impressions: Service Date/Time: January 11:04 - CONCLUSION: 1. Mild superior endplate compression fracture of L4 anteriorly. No subluxation. No retropulsion. Fahad Roger MD Lower Extremity CT 02/18/17 0000 Signed Impressions: Service Date/Time: Sunday, February 19, 2017 00:12 - CONCLUSION: 1. Comminuted tibial plafond fracture with prominent involvement of the tibiotalar joint articular surface and 1 cm depressed bone fragment. Widening of the ankle mortise. 2. horizontal distal fibular fracture. Frankie Jackson MD Chest CT 02/18/17 0000 Signed Impressions: Service Date/Time: January 11:04 - CONCLUSION: No acute intrathoracic injury Ad Langley MD Procedures Left ankle external fixator, 02/19/2017, Dr. Ibrahima Aguilar Objective Remarks Lower extremity: Clean dry dressings intact with knee immobilizer in place. Ex- fix in place with swelling of +2 over ankle. Moderate drainage from external fixator Swelling is continuing to improve Skin is intact. Intact sensation distally and is able to move all toes Assessment & Plan Problem List: (1) Patella fracture ICD Codes: S82.009A - Unspecified fracture of unspecified patella, initial encounter for closed fracture Status: Acute Qualifiers: Qualified Codes: S82.002A - Unspecified fracture of left patella, initial encounter for closed fracture (2) Trimalleolar fracture ICD Codes: S82.853A - Displaced trimalleolar fracture of unspecified lower leg , initial encounter for closed fracture Status: Acute Qualifiers: Qualified Codes: S82.852A - Displaced trimalleolar fracture of left lower leg, initial encounter for closed fracture Assessment and Plan 1) Left ankle pilon fracture with fibula fracture s/p ORIF and reapplication of exfix POD 1 2) Left patella fracture, comminuted s/p Tendon reconstruction - POD 5 PLAN: NWB LLE daily dressing changes to knee, immobilizer at all times. No quad sets or range of motion of knee elevate pin care BID May change dressings today to drainage Lovenox Discharge plan Javier Pisano Jr. Mar 03, 2017 06:34
[2017-03-03] MEDS: MULTIVITAMINS/MINERALS THERAPEUTIC TAB PO SCH (07:30)
[2017-03-03] MEDS: DOCUSATE SODIUM 50 MG/SENNA 8.6 MG TAB PO SCH ×2 (07:30→19:49)
[2017-03-03] MEDS: CALCIUM/VITAMIN D 250 MG/125 U TAB PO SCH ×3 (07:30→18:00)
[2017-03-03] MEDS: LACTULOSE SYRUP 20 GM/30 ML CUP PO SCH (07:31)
[2017-03-03] MEDS: MAGNESIUM HYDROXIDE SUSP 30 ML CUP PO SCH ×2 (07:31→19:49)
[2017-03-03] MEDS: MORPHINE SULFATE 2 MG/ML INJ IV PUSH PRN ×3 (07:34→22:44)
[2017-03-03] MEDS ORDERED: WHEEMIS3 (12:07)
[2017-03-03] MEDS ORDERED: COMMODE 3-IN-11 MIS (12:07)
[2017-03-03] MEDS: ENOXAPARIN SODIUM 40 MG/0.4 ML SYRINGE SQ SCH (12:47)
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
[2017-03-03] MEDS: BACITRACIN/POLYMYXIN B 15 GM TUBE TOPICAL SCH (21:00)
[2017-03-04] VITALS (7 sets, daily range): BP systolic 117–146; BP diastolic 73–84; PULSE 76–104; RESP 18; TEMP 97.9–98.8; O2SAT 98–99
[2017-03-04] MEDS: VANCOMYCIN INJ 1,000 MG in SODIUM CHLOR 0.9% 250 ML INJ 250 ML IV SCH (00:04)
[2017-03-04] MEDS: ceFAZolin 2 GM PREMIX 50 ML IV SCH ×2 (04:30→13:00)
[2017-03-04] MEDS: PREGABALIN 100 MG CAP PO SCH ×3 (05:33→20:28)
[2017-03-04] MEDS: METHOCARBAMOL 500 MG TAB PO SCH ×3 (05:33→20:28)
[2017-03-04] MEDS: KETOROLAC TROMETHAMINE 30 MG/ML (IVP) VIAL IVP SCH ×2 (05:33→13:09)
[2017-03-04] MEDS: MORPHINE SULFATE 2 MG/ML INJ IV PUSH PRN (05:33)
--- NOTE | 2017-03-04 06:36 | PD.ORT.PN ---
Subjective Subjective Remarks Pain controlled and resting comfortably status post external fixation of left ankle Objective Vitals Vital Signs Date Time Temp Pulse Resp B/P (MAP) Pulse Ox O2 Delivery O2 Flow Rate FiO2 03/04/17 00:15 98.8 82 18 117/77 (90) 99 03/03/17 20:35 99.8 94 18 133/65 (87) 99 03/03/17 17:40 99 21 03/03/17 15:37 98.6 93 18 131/83 (99) 99 03/03/17 12:00 98.7 100 18 126/78 (94) 98 03/03/17 11:52 98 03/03/17 07:35 98.5 79 18 113/63 (80) 98 I/O 03/03/17 03/03/17 03/03/17 03/04/17 03/04/17 03/04/17 07:00 15:00 23:00 07:00 15:00 23:00 Intake Total 1200 ml 600 ml 240 ml Output Total 800 ml 600 ml Balance 400 ml 600 ml -360 ml Intake Oral 1200 ml 600 ml 240 ml Output Urine Total 800 ml 600 ml # Voids 5 # Bowel Movements 1 0 Result Diagram: 03/03/17 0351 03/03/17 0351 Imaging Last Impressions Knee X-Ray 02/19/17 0000 Signed Impressions: Service Date/Time: Sunday, February 19, 2017 16:31 - CONCLUSION: 1. Comminuted left patellar fracture. Scott Erazo MD Ankle X-Ray 02/19/17 0000 Signed Impressions: Service Date/Time: Sunday, February 19, 2017 16:31 - CONCLUSION: 1. Status post left ankle external fixation, as above. Scott Erazo MD Pelvis X-Ray 02/18/17 1040 Signed Impressions: Service Date/Time: January 10:37 - CONCLUSION: The bony structures are grossly intact. A CT scan of the abdomen and pelvis were performed for further evaluation. Lenin Franco MD Maxillofacial CT 02/18/17 1040 Signed Impressions: Service Date/Time: January 10:57 - CONCLUSION: 1. There are bilateral nasal bone fractures which are mildly displaced. There is surrounding soft tissue swelling. 2. The rest of the bony structures of the facial bones are grossly intact. Lenin Franco MD Head CT 02/18/17 1040 Signed Impressions: Service Date/Time: January 10:57 - CONCLUSION: 1. Unremarkable CT scan of the brain. 2. Nondisplaced fractures involving the nasal bones. Lenin Franco MD Chest X-Ray 02/18/17 1040 Signed Impressions: Service Date/Time: January 10:37 - CONCLUSION: No acute intrathoracic disease. Lenin Franco MD Cervical Spine CT 02/18/17 1040 Signed Impressions: Service Date/Time: January 10:57 - CONCLUSION: Normal examination for a patient of this age. Lenin Franco MD Abdomen/Pelvis CT 02/18/17 1040 Signed Impressions: Service Date/Time: January 11:04 - CONCLUSION: 1. There appears to be a trace of fluid around the liver. 2. There is a mild compression fracture injury involving the anterior superior endplate of L4. The rest of the bony structures appear to be grossly intact. Lenin Franco MD Tibia/Fibula X-Ray 02/18/17 0000 Signed Impressions: Service Date/Time: January 10:37 - CONCLUSION: 1. There is a fracture through the body of the patella. 2. There are comminuted fractures involving the distal tibia and fibula. Lenin Franco MD Shoulder X-Ray 02/18/17 0000 Signed Impressions: Service Date/Time: January 10:37 - CONCLUSION: Limited study. The bony structures appear to be grossly intact. No definite joint dislocation. A Lenin Franco MD Lumbar Spine CT 02/18/17 0000 Signed Impressions: Service Date/Time: January 11:04 - CONCLUSION: 1. Mild superior endplate compression fracture of L4 anteriorly. No subluxation. No retropulsion. Fahad Roger MD Lower Extremity CT 02/18/17 0000 Signed Impressions: Service Date/Time: Sunday, February 19, 2017 00:12 - CONCLUSION: 1. Comminuted tibial plafond fracture with prominent involvement of the tibiotalar joint articular surface and 1 cm depressed bone fragment. Widening of the ankle mortise. 2. horizontal distal fibular fracture. Frankie Jackson MD Chest CT 02/18/17 0000 Signed Impressions: Service Date/Time: January 11:04 - CONCLUSION: No acute intrathoracic injury Ad Langley MD Procedures Left ankle external fixator, 02/19/2017, Dr. Ibrahima Aguilar Objective Remarks Lower extremity: Clean dry dressings intact with knee immobilizer in place. Ex- fix in place with swelling of +2 over ankle. Moderate drainage from external fixator Swelling is continuing to improve Skin is intact. Intact sensation distally and is able to move all toes Assessment & Plan Problem List: (1) Patella fracture ICD Codes: S82.009A - Unspecified fracture of unspecified patella, initial encounter for closed fracture Status: Acute Qualifiers: Qualified Codes: S82.002A - Unspecified fracture of left patella, initial encounter for closed fracture (2) Trimalleolar fracture ICD Codes: S82.853A - Displaced trimalleolar fracture of unspecified lower leg , initial encounter for closed fracture Status: Acute Qualifiers: Qualified Codes: S82.852A - Displaced trimalleolar fracture of left lower leg, initial encounter for closed fracture Assessment and Plan 1) Left ankle pilon fracture with fibula fracture s/p ORIF and reapplication of exfix POD 2 2) Left patella fracture, comminuted s/p Tendon reconstruction - POD 6 PLAN: NWB LLE daily dressing changes to knee, immobilizer at all times. No quad sets or range of motion of knee elevate pin care BID Daily dressing changes Lovenox Discharge plan - lives with father, but father works during the day Javier Pisano Jr. Mar 04, 2017 06:36
[2017-03-04] MEDS: CALCIUM/VITAMIN D 250 MG/125 U TAB PO SCH ×3 (08:00→17:33)
[2017-03-04] MEDS: MULTIVITAMINS/MINERALS THERAPEUTIC TAB PO SCH (08:00)
[2017-03-04] MEDS: MAGNESIUM HYDROXIDE SUSP 30 ML CUP PO SCH ×2 (08:00→20:27)
[2017-03-04] MEDS: LACTULOSE SYRUP 20 GM/30 ML CUP PO SCH (08:00)
[2017-03-04] MEDS: DOCUSATE SODIUM 50 MG/SENNA 8.6 MG TAB PO SCH ×2 (08:00→20:28)
[2017-03-04] MEDS: fentaNYL 50 MCG/HR PATCH T-DERMAL SCH (08:01)
[2017-03-04] MEDS: REMOVE OLD DURAGESIC (FENTANYL) PATCH T-DERMAL SCH (08:01)
[2017-03-04] MEDS: BACITRACIN/POLYMYXIN B 15 GM TUBE TOPICAL SCH ×2 (08:02→20:28)
[2017-03-04] MEDS ORDERED: MIDAZOLAM HCL 2 MG/2 ML VIAL IV PUSH ONE (11:15)
[2017-03-04] MEDS ORDERED: MIDAZOLAM HCL 2 MG/2 ML VIAL IV PUSH PRN (11:25)
[2017-03-04] MEDS ORDERED: METH500T3 PO (14:41)
[2017-03-04] MEDS: ENOXAPARIN SODIUM 40 MG/0.4 ML SYRINGE SQ SCH (14:46)
[2017-03-04] MEDS ORDERED: XARE20TA PO (15:08)
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
[2017-03-05] VITALS (7 sets, daily range): BP systolic 126–133; BP diastolic 77–82; PULSE 94–108; RESP 18; TEMP 98.5–99.1; O2SAT 98–99
[2017-03-05] MEDS: PREGABALIN 100 MG CAP PO SCH ×3 (05:14→21:45)
[2017-03-05] MEDS: METHOCARBAMOL 500 MG TAB PO SCH ×3 (05:14→21:45)
--- NOTE | 2017-03-05 06:49 | HHI.FF ---
Face to Face Verification Diagnosis: (1) Patella fracture (2) Trimalleolar fracture Physical Therapy Gait training, Wheelchair training Knee: Knee fracture, Protocol: Left, Non weight bearing Canvas Knee Splint: At all times Left LE Weight Bearing: Non WB, No Strengthening, No Quad Sets Left LE Range of Motion: No ROM Nursing Nursing: Pin care, Teach and assist BID pin care Dressing Changes: Daily dressing change, Xeroform, Coverderm/Primapore I have seen patient Javy Villa on 03/05/17. My clinical findings support the need for the requested home health care services because: Ltd mobility - disease progression I certify that my clinical findings support that this patient is homebound because: Post-op weakness Salomón Dennis/[employer] CONNOR Mar 05, 2017 06:49
[2017-03-05] MEDS: CALCIUM/VITAMIN D 250 MG/125 U TAB PO SCH ×3 (10:06→17:11)
[2017-03-05] MEDS: MULTIVITAMINS/MINERALS THERAPEUTIC TAB PO SCH (10:06)
[2017-03-05] MEDS: DOCUSATE SODIUM 50 MG/SENNA 8.6 MG TAB PO SCH ×2 (10:06→21:45)
[2017-03-05] MEDS: MAGNESIUM HYDROXIDE SUSP 30 ML CUP PO SCH ×2 (10:07→21:45)
[2017-03-05] MEDS: LACTULOSE SYRUP 20 GM/30 ML CUP PO SCH (10:07)
[2017-03-05] MEDS: BACITRACIN/POLYMYXIN B 15 GM TUBE TOPICAL SCH ×2 (10:09→21:00)
[2017-03-05] MEDS: ENOXAPARIN SODIUM 40 MG/0.4 ML SYRINGE SQ SCH (13:42)
[2017-03-06 00:20] VITALS: BP 138/84; PULSE 82; RESP 18; TEMP 99.2; O2SAT 99
[2017-03-06] MEDS: PREGABALIN 100 MG CAP PO SCH ×2 (04:53→13:59)
[2017-03-06] MEDS: METHOCARBAMOL 500 MG TAB PO SCH ×2 (04:53→14:00)
[2017-03-06] MEDS: MULTIVITAMINS/MINERALS THERAPEUTIC TAB PO SCH (08:09)
[2017-03-06] MEDS: MAGNESIUM HYDROXIDE SUSP 30 ML CUP PO SCH (08:09)
[2017-03-06] MEDS: LACTULOSE SYRUP 20 GM/30 ML CUP PO SCH (08:09)
[2017-03-06] MEDS: CALCIUM/VITAMIN D 250 MG/125 U TAB PO SCH ×3 (08:09→17:21)
[2017-03-06] MEDS: DOCUSATE SODIUM 50 MG/SENNA 8.6 MG TAB PO SCH (08:09)
[2017-03-06] MEDS: BACITRACIN/POLYMYXIN B 15 GM TUBE TOPICAL SCH (08:43)
[2017-03-06 12:00] VITALS: BP 134/89; PULSE 92; RESP 18; TEMP 98.5; O2SAT 98
[2017-03-06] MEDS: ENOXAPARIN SODIUM 40 MG/0.4 ML SYRINGE SQ SCH (13:59)
--- NOTE | 2017-03-08 12:42 | RADRPT ---
EXAM DATE/TIME: 03/02/2017 14:12 [facility] COMPARISON: ANKLE LEFT LIMITED (AP&LAT), February 19, 2017, 16:31. INDICATIONS : ORIF left ankle fracture MEDICAL HISTORY : None. SURGICAL HISTORY : None. ENCOUNTER: Initial ACUITY: 1 day PAIN SCORE: Non-responsive. LOCATION: Left ankle FINDINGS: Multiple cone down views of the lower left leg and ankle were obtained using a matrix camera. This de monstrates interval placement of a screw plate fixation device along the distal medial tibia. There 2 lag-type screws through the distal tibia as well. The fracture fragments are in anatomic alignment. There is a nondisplaced distal fibular fracture as well. CONCLUSION: Status post open rigid internal fixation with the fracture fragments now in anatomic alignment. Javier Perea MD on March 08, 2017 at 12:37 Board Certified Radiologist. This report was verified electronically.
--- NOTE | 2017-03-08 13:29 | RADRPT ---
EXAM DATE/TIME: 03/02/2017 14:12 [facility] COMPARISON: ANKLE LEFT LIMITED (AP&LAT), February 19, 2017, 16:31. CT ANKLE LEFT W/O CONTRAST, February 19, 2017 , 0:12. ANKLE LEFT LIMITED (AP&LAT), March 02, 2017, 14:12. INDICATIONS : Ex-Fix application to left ankle post ORIF MEDICAL HISTORY : None. SURGICAL HISTORY : None. ENCOUNTER: Initial ACUITY: 1 day PAIN SCORE: Non-responsive. LOCATION: Left ankle FINDINGS: Matrix views reveal sideplate multiple views and the distal tibia with excellent approximation in ali gnment of fracture fragments and ankle mortise intact. Horizontal fracture distal fibula toward the b ase of the lateral malleolus remains present. CONCLUSION: Stable views of the left ankle Louie Frias MD on March 08, 2017 at 13:25 Board Certified Radiologist. This report was verified electronically.
== END 2017-03-06 17:35 | disposition home or self-care (01) | DRG 488 ==
LOC: NEPI 10:36 → EDBD 12:21 → NEDA 12:21 → N06B 15:41 → N06A 02-19 14:00
PROVIDERS: ADMIT Surgery Trauma Surgery; ATTEND Surgery Trauma Surgery
PROC: 0HQKXZZ Repair Right Lower Leg Skin, External Approach (ICD-10-PCS; 2017-02-18)
PROC: 0CQ0XZZ Repair Upper Lip, External Approach (ICD-10-PCS; 2017-02-18)
PROC: 09QKXZZ Repair Nasal Mucosa and Soft Tissue, External Approach (ICD-10-PCS; 2017-02-18)
PROC: 0QSH35Z Reposition Left Tibia with External Fixation Device, Percutaneous Approach (ICD-10-PCS; principal; 2017-02-19 15:50)
PROC: 0NSBXZZ Reposition Nasal Bone, External Approach (ICD-10-PCS; 2017-02-24)
PROC: 0QBF0ZZ Excision of Left Patella, Open Approach (ICD-10-PCS; 2017-02-26)
PROC: 0QSF0ZZ Reposition Left Patella, Open Approach (ICD-10-PCS; 2017-02-26)
PROC: 0LQR0ZZ Repair Left Knee Tendon, Open Approach (ICD-10-PCS; 2017-02-26)
PROC: 0QSH04Z Reposition Left Tibia with Internal Fixation Device, Open Approach (ICD-10-PCS; 2017-03-02)
PROC: 0QW Lower Bones, Revision (ICD-10-PCS; 2017-03-02)
DX: S82.872A Displaced pilon fracture of left tibia, initial encounter for closed fracture (principal); S82.042A Displaced comminuted fracture of left patella, initial encounter for closed fracture; S32.040A Wedge compression fracture of fourth lumbar vertebra, initial encounter for closed fracture; S36.112A Contusion of liver, initial encounter; S81.011A Laceration without foreign body, right knee, initial encounter; S36.113A Laceration of liver, unspecified degree, initial encounter; S82.832A Other fracture of upper and lower end of left fibula, initial encounter for closed fracture; S01.21XA Laceration without foreign body of nose, initial encounter; S02.2XXA Fracture of nasal bones, initial encounter for closed fracture; S01.511A Laceration without foreign body of lip, initial encounter; S43.401A Unspecified sprain of right shoulder joint, initial encounter; R50.9 Fever, unspecified; F17.210 Nicotine dependence, cigarettes, uncomplicated; V43.53XA Car driver injured in collision with pick-up truck in traffic accident, initial encounter; Y92.410 Unspecified street and highway as the place of occurrence of the external cause
CPT/HCPCS: 12002; 12013; 70450; 70486; 71010; 71260; 72125; 72131; 72170; 73020; 73560; 73590; 73600; 73700; 74177; 76000; 80048; 80053; 82435; 82565; 82947; 84132; 84295; 84520; 85025; 85610; 85730; 86850; 86900; 86901; 90471; 90715; 94150; 94667; 96374; 99291; C1713; G0390; J0131; J0690; J1100; J1170; J1580; J1650; J1885; J2175; J2250; J2270; J2370; J2405; J2710; J3010; J3370; J7050; J7120; L0484; L1830; P9045; Q9967

== ENCOUNTER → 2017-04-16 | Day surgery (SDC) | payer SELFPAY ==
[~2017-04-16] VITALS: Ht 177.8 cm; Wt 77.0 kg
[~2017-04-16] MED LIST: *MEPERIDINE 25 MG INJ VIAL PERIprocedural Use ONLY ONE; *diphenhydrAMINE HCL 50 MG/ML VIAL PERIprocedural Use ONLY ONE; *morphine SULFATE 10 MG/ML PERIprocedure ONLY ONE; CALCTAB19 PO; CHLORHEXIDINE GLUCONATE 2 % 1 PACK (2 CLOTHS) TOPICAL PRN; CHLORHEXIDINE GLUCONATE 4% SOLN 120 ML BTL TOPICAL SCH; COMMODE 3-IN-11 MIS; DEXAMETHASONE SOD PHOS 4 MG/ML VIAL IV ONE; DO NOT ADM ANY ANTICOAGULANT DRUGS PRN; DOCU1CAP39 PO; ENDO10TA8 PO; GENTAMICIN SULFATE 80 MG/2 ML VIAL ONE; LACTATED RINGER'S 1000 ML IV PRN; LIDOCAINE HCL 1% PF 5 ML SYRINGE OTHER ONE; MAGN30S PO; METH500T3 PO; METOPROLOL TARTRATE 25 MG TAB PO PRN; MIDAZOLAM HCL 2 MG/2 ML VIAL ONE; MORPHINE SULFATE 4 MG/ML INJ IV PUSH PRN; MORPHINE SULFATE 4 MG/ML INJ ONE; ONDANSETRON HCL 4 MG/2 ML VIAL IV ONE; ONDANSETRON HCL 4 MG/2 ML VIAL IV PUSH PRN; PERC7.5T13 PO; POVIDONE IODINE 5% (ANTISEPSIS KIT) 4 APPLICATIONS EACH NARE PRN; PROPOFOL 200 MG/20 ML AMP IV ONE; SODIUM CHLORID 0.9% 500 ML IV PRN; SODIUM CHLORIDE 0.9% FLUSH 10 ML FLUSH IV FLUSH PRN; SODIUM CHLORIDE 0.9% FLUSH 10 ML FLUSH IV FLUSH SCH; VANCOMYCIN 1000 MG/NS 250 ML (for <70 kg) IV SCH; WALKER WHEELS/F1 MIS; WHEEMIS3; XARE20TA PO; ceFAZolin 2 GM PREMIX 50 ML IV SCH; oxyCODONE/ACETAMINOPHEN 5 MG/325 MG TAB PO PRN
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
--- NOTE | 2017-04-16 07:32 | RADRPT ---
EXAM DATE/TIME: 04/16/2017 07:13 [facility] COMPARISON: ANKLE LEFT LIMITED (AP&LAT), March 02, 2017, 14:12. INDICATIONS : Removal of external fixator amd manipulation of left ankle. MEDICAL HISTORY : None. SURGICAL HISTORY : ORIF left distal tibia. ENCOUNTER: Subsequent ACUITY: 1 day PAIN SCORE: Non-responsive. LOCATION: Left ankle. FINDINGS: AP and lateral spot fluoroscopic images of the left ankle obtained in the operating room during a pro cedure demonstrate a medial distal tibial side plate with multiple interlocking screws and 2 partiall y threaded cannulated lag screws extending anterior to posterior in the distal tibial metaphysis. The re are no findings to indicate hardware failure. Ankle mortise is intact. CONCLUSION: Spot fluoroscopic images of the left ankle, as above. Ad Hunt MD on April 16, 2017 at 7:30 Board Certified Radiologist. This report was verified electronically.
[2017-04-16 09:00] VITALS: BP 134/84; PULSE 81; RESP 16; TEMP 98.8; O2SAT 100
== END | disposition home or self-care (01) ==
LOC: HSDC 05:12
PROVIDERS: ATTEND Orthopaedic Surgery Orthopaedic Trauma
DX: S82.302D Unspecified fracture of lower end of left tibia, subsequent encounter for closed fracture with routine healing (principal); V43.53XD Car driver injured in collision with pick-up truck in traffic accident, subsequent encounter; Y92.410 Unspecified street and highway as the place of occurrence of the external cause
CPT/HCPCS: 01390; 20694; 73600; 76000; J1100; J1200; J2175; J2250; J2270; J2405; J3010; J7120; L1830; L2114; J1580